=== PATIENT | male | born 1940 | race African-American/Black ===

== ENCOUNTER 2018-09-21 22:32 | Inpatient (IN) | payer MEDICARE ==
[~2018-09-21] VITALS: Ht 180.3 cm; Wt 92.5 kg
[2018-09-21] MEDS ORDERED: ASPIRIN 81MG TABLET PO ONE (23:15)
[2018-09-21 23:54] LABS: BASOPHILS % 0.6 % (0.0-2.0); EOSINOPHILS % 0.8 % (0.0-5.0); LYMPHOCYTES % 9.9 % (20.0-50.0); MEAN CORPUSCULAR HEMOGLOBIN 27.4 pg (28.0-32.0); MEAN CORPUSCULAR VOLUME 87.5 fL (80.0-94.0); MEAN PLATELET VOLUME 7.7 fl (7.4-10.4); MONOCYTES % 10.4 % (2.0-8.0); NEUTROPHILS % 78.3 % (40.0-76.0); PLATELET 227 x1000/uL (130-400); RED BLOOD CELL COUNT 3.65 mill/uL (4.7-6.1); RED CELL DISTRIBUTION WIDTH 16.6 % (11.6-14.6)
[2018-09-22] VITALS (8 sets, daily range): BP systolic 109–183; BP diastolic 44–91
[2018-09-22 00:09] LABS: CHLORIDE 107 mEq/L (98-107)
[2018-09-22] MEDS ORDERED: SODIUM CHLORIDE 0.9% 1,000 ML IV ONE (00:45)
[2018-09-22 00:48] LABS: PROTHROMBIN TIME 10.5 sec (9.1-11.1)
[2018-09-22] MEDS ORDERED: ONDANSETRON HCL 4MG/2ML INJ IV PRN (01:15)
[2018-09-22] MEDS ORDERED: DIPHENHYDRAMINE 50MG/ML VIAL IV PRN (01:15)
[2018-09-22] MEDS ORDERED: IPRATROPIUM/ALBUTEROL 0.5-3(2.5)MG/3ML NEB INH PRN (01:15)
[2018-09-22] MEDS ORDERED: MAGNESIUM/ALUMINUM HYDROXIDE/SIMETHICONE 30ML UDC PO PRN (01:15)
[2018-09-22] MEDS ORDERED: ENOXAPARIN 100MG/ML SYR SUBCUT NR (01:30)
[2018-09-22] MEDS ORDERED: CLOP75TA16 MT (03:14)
[2018-09-22] MEDS ORDERED: TAMS0.4C31 MT (03:14)
[2018-09-22] MEDS ORDERED: INSU100I22 SQ (03:14)
[2018-09-22] MEDS ORDERED: CLOP75TA33 MT (03:14)
[2018-09-22] MEDS ORDERED: BENA40TA9 MT (03:14)
[2018-09-22] MEDS ORDERED: TRAM50TA3 MT (03:14)
[2018-09-22] MEDS ORDERED: ASPI-1159 MT (03:14)
[2018-09-22] MEDS: IPRATROPIUM/ALBUTEROL 0.5-3(2.5)MG/3ML NEB HHN SCH (04:00)
[2018-09-22] MEDS ORDERED: DEXTROSE 50% WATER 50ML SYRINGE IV PRN (04:15)
[2018-09-22] MEDS: SODIUM CHLORIDE 0.9% INJ 3ML FLUSH IVF SCH ×3 (05:47→22:09)
[2018-09-22] MEDS: BLOOD SUGAR DIAGNOSTIC STRIP TEST SCH ×4 (06:44→21:00)
[2018-09-22] MEDS ORDERED: PNEUMOCOCCAL 23-VAL P-SAC VAC 0.5 ML IM ONE (08:00)
[2018-09-22] MEDS: TAMSULOSIN HCL 0.4MG SR CAPSULE PO SCH (08:48)
[2018-09-22] MEDS: CLOPIDOGREL 75MG TABLET PO SCH (08:48)
[2018-09-22] MEDS: ASPIRIN 81MG EC TABLET PO SCH (08:48)
[2018-09-22] MEDS: INSULIN LISPRO 100 UNITS/ML SUBCUT SCH ×4 (09:01→22:11)
[2018-09-22] MEDS ORDERED: INFLUENZA VIRUS VACCINE(AFLURIA) 0.5ML SYR IM ONE (10:00)
[2018-09-22] MEDS ORDERED: NA PHOS,M-B/NA PHOS,DI-BA ENEMA 118ML PR NR (13:00)
[2018-09-22] MEDS ORDERED: HEPARIN 25,000 UNITS PREMIX 500 ML IV SCH (15:30)
[2018-09-22] MEDS ORDERED: IPRATROPIUM/ALBUTEROL 0.5-3(2.5)MG/3ML NEB HHN PRN (15:30)
[2018-09-22 16:30] LABS: BG BASE EXCESS -2.8 mmol/L (-2.0-2.0); BG CARBOXYHEMOGLOBIN 0.6 % (0.5-1.5); BG DEOXYHEMOGLOBIN 6.2 % (0.0-5.0); BG FRACTION INSPIRED OXYGEN 32; BG HCO3 ACT 21.5 mmol/L (22.0-26.0); BG OXYGEN SATURATION 93.8 % (92.0-98.5); BG OXYHEMOGLOBIN 93.2 % (94.0-97.0); BG PCO2 35.2 mmHg (35.0-45.0); BG PH 7.403 (7.350-7.450); BG PO2 72.7 mmHg (75.0-100.0); BG SAMPLE SITE LEFT BRACHIAL; BG TOTAL HEMOGLOBIN 9.7 g/dL (12.0-18.0); BG VENT MODE NASAL CANNULA
[2018-09-22] MEDS ORDERED: HEPARIN BOLUS PRN aPTT <36 IV (16:45)
[2018-09-22] MEDS ORDERED: HEPARIN BOLUS PRN aPTT 37-44 IV (16:45)
[2018-09-22] MEDS: METHYLPREDNISOLONE SOD SUCC 40 MG/ML VIAL IV SCH (16:56)
[2018-09-22] MEDS ORDERED: HEPARIN 80 UNITS/KG BOLUS IV NR (17:00)
[2018-09-22] MEDS: HEPARIN 25,000 UNITS PREMIX 500 ML IV SCH (18:39)
[2018-09-22 21:03] LABS: CLARITY URINE CLEAR (CLEAR); COLOR URINE YELLOW (YELLOW); KETONES URINE NEGATIVE (NEGATIVE); LEUKOCYTE ESTERASE URINE NEGATIVE (NEGATIVE); NITRITE URINE POSITIVE (NEGATIVE); OCCULT BLOOD URINE NEGATIVE (NEGATIVE); PROTEIN URINE NEGATIVE (NEGATIVE); SPECIFIC GRAVITY URINE 1.016 (1.005-1.030); UROBILINOGEN URINE 0.2 E.U./dL (0.2-1.0)
[2018-09-22 21:22] LABS: *AMPHETAMINES SCREEN URINE NEGATIVE (NEGATIVE); *BARBITURATES SCREEN URINE NEGATIVE (NEGATIVE)
[2018-09-22 21:23] LABS: *BENZODIAZEPINES SCREEN URINE NEGATIVE (NEGATIVE); *COCAINE SCREEN URINE NEGATIVE (NEGATIVE); CANNABINOID URINE SCREEN NEGATIVE (NEGATIVE); METHADONE URINE SCREEN NEGATIVE (NEGATIVE); OPIATES URINE SCREEN NEGATIVE (NEGATIVE)
[2018-09-22 21:24] LABS: PHENCYCLIDINE URINE SCREEN NEGATIVE (NEGATIVE)
[2018-09-22] MEDS ORDERED: INSULIN GLARGINE UD 100 UNITS/ML SYR SUBCUT SCH (22:00)
[2018-09-22] MEDS: INSULIN GLARGINE UD 100 UNITS/ML SYR SUBCUT SCH (22:11)
[2018-09-22] MEDS: ACETAMINOPHEN 325MG TABLET PO PRN (22:12)
[2018-09-22] MEDS ORDERED: ENOXAPARIN 100MG/ML SYR SUBCUT SCH (23:00)
[2018-09-23] VITALS (12 sets, daily range): BP systolic 129–166; BP diastolic 48–98
[2018-09-23] MEDS: METHYLPREDNISOLONE SOD SUCC 40 MG/ML VIAL IV SCH ×3 (00:17→16:35)
[2018-09-23] MEDS: SODIUM CHLORIDE 0.9% INJ 3ML FLUSH IVF SCH ×3 (06:22→23:07)
[2018-09-23] MEDS: BLOOD SUGAR DIAGNOSTIC STRIP TEST SCH ×4 (06:23→21:00)
[2018-09-23] MEDS: INSULIN LISPRO 100 UNITS/ML SUBCUT SCH ×4 (08:23→23:08)
[2018-09-23] MEDS: TAMSULOSIN HCL 0.4MG SR CAPSULE PO SCH (08:24)
[2018-09-23] MEDS: ASPIRIN 81MG EC TABLET PO SCH (08:24)
[2018-09-23] MEDS: CLOPIDOGREL 75MG TABLET PO SCH (08:24)
[2018-09-23] MEDS: HEPARIN 25,000 UNITS PREMIX 500 ML IV SCH (14:31)
[2018-09-23] MEDS: CLONIDINE 0.1MG TABLET PO PRN (16:35)
[2018-09-23] MEDS: IPRATROPIUM/ALBUTEROL 0.5-3(2.5)MG/3ML NEB HHN SCH (17:06)
[2018-09-23] MEDS: INSULIN GLARGINE UD 100 UNITS/ML SYR SUBCUT SCH (22:00)
[2018-09-24] VITALS (14 sets, daily range): BP systolic 115–174; BP diastolic 50–108
[2018-09-24] MEDS: SODIUM CHLORIDE 0.9% INJ 3ML FLUSH IVF SCH ×3 (06:54→21:53)
[2018-09-24] MEDS: BLOOD SUGAR DIAGNOSTIC STRIP TEST SCH ×4 (06:54→20:46)
[2018-09-24] MEDS: INSULIN LISPRO 100 UNITS/ML SUBCUT SCH ×4 (06:54→20:45)
[2018-09-24] MEDS: METHYLPREDNISOLONE SOD SUCC 40 MG/ML VIAL IV SCH ×2 (09:20→17:13)
[2018-09-24] MEDS: ASPIRIN 81MG EC TABLET PO SCH (09:21)
[2018-09-24] MEDS: TAMSULOSIN HCL 0.4MG SR CAPSULE PO SCH (09:21)
[2018-09-24] MEDS: CLOPIDOGREL 75MG TABLET PO SCH (09:21)
[2018-09-24] MEDS: ACETAMINOPHEN 325MG TABLET PO PRN (09:50)
[2018-09-24] MEDS: ENOXAPARIN 100MG/ML SYR SUBCUT SCH (15:58)
[2018-09-24] MEDS: CLONIDINE 0.1MG TABLET PO PRN (17:13)
[2018-09-24] MEDS: GUAIFENESIN 200MG/10ML SUGAR FREE UDC PO PRN (21:22)
[2018-09-24] MEDS: INSULIN GLARGINE UD 100 UNITS/ML SYR SUBCUT SCH (21:55)
[2018-09-25] VITALS (13 sets, daily range): BP systolic 118–168; BP diastolic 50–93
[2018-09-25] MEDS: IPRATROPIUM/ALBUTEROL 0.5-3(2.5)MG/3ML NEB HHN SCH ×4 (01:36→23:38)
[2018-09-25] MEDS: SODIUM CHLORIDE 0.9% INJ 3ML FLUSH IVF SCH ×3 (05:52→21:33)
[2018-09-25] MEDS: BLOOD SUGAR DIAGNOSTIC STRIP TEST SCH ×4 (06:11→21:32)
[2018-09-25] MEDS: INSULIN LISPRO 100 UNITS/ML SUBCUT SCH ×4 (08:42→21:46)
[2018-09-25] MEDS: TAMSULOSIN HCL 0.4MG SR CAPSULE PO SCH (08:45)
[2018-09-25] MEDS: ASPIRIN 81MG EC TABLET PO SCH (08:45)
[2018-09-25] MEDS: METHYLPREDNISOLONE SOD SUCC 40 MG/ML VIAL IV SCH (08:45)
[2018-09-25] MEDS: CLOPIDOGREL 75MG TABLET PO SCH (08:46)
[2018-09-25] MEDS: GUAIFENESIN 200MG/10ML SUGAR FREE UDC PO PRN ×3 (08:52→17:24)
[2018-09-25] MEDS: ENOXAPARIN 100MG/ML SYR SUBCUT SCH (15:45)
[2018-09-25] MEDS: INSULIN GLARGINE UD 100 UNITS/ML SYR SUBCUT SCH (21:32)
[2018-09-26] VITALS (12 sets, daily range): BP systolic 114–159; BP diastolic 50–84
[2018-09-26] MEDS: IPRATROPIUM/ALBUTEROL 0.5-3(2.5)MG/3ML NEB HHN SCH ×5 (04:45→20:54)
[2018-09-26] MEDS: SODIUM CHLORIDE 0.9% INJ 3ML FLUSH IVF SCH ×3 (06:28→21:20)
[2018-09-26] MEDS: BLOOD SUGAR DIAGNOSTIC STRIP TEST SCH ×4 (06:28→20:44)
[2018-09-26] MEDS: INSULIN LISPRO 100 UNITS/ML SUBCUT SCH ×4 (06:29→20:52)
[2018-09-26 07:12] LABS: BASOPHILS % 0.6 % (0.0-2.0); HEMATOCRIT. 29.9 % (42.0-52.0); HEMOGLOBIN. 9.7 g/dL (14.0-18.0); LYMPHOCYTES % 25.4 % (20.0-50.0); MEAN CORPUSCULAR HEMOGLOBIN 27.6 pg (28.0-32.0); MEAN CORPUSCULAR VOLUME 85.1 fL (80.0-94.0); MEAN PLATELET VOLUME 8.2 fl (7.4-10.4); MONOCYTES % 13.8 % (2.0-8.0); NEUTROPHILS % 59.2 % (40.0-76.0); PLATELET 323 x1000/uL (130-400); RED BLOOD CELL COUNT 3.52 mill/uL (4.7-6.1); RED CELL DISTRIBUTION WIDTH 16.3 % (11.6-14.6)
[2018-09-26] MEDS: PREDNISONE 20MG TABLET PO SCH (08:16)
[2018-09-26] MEDS: TAMSULOSIN HCL 0.4MG SR CAPSULE PO SCH (08:17)
[2018-09-26] MEDS: CLOPIDOGREL 75MG TABLET PO SCH (08:17)
[2018-09-26] MEDS: ASPIRIN 81MG EC TABLET PO SCH (08:17)
[2018-09-26] MEDS: GUAIFENESIN 200MG/10ML SUGAR FREE UDC PO PRN (08:40)
[2018-09-26] MEDS: ENOXAPARIN 100MG/ML SYR SUBCUT SCH (14:28)
[2018-09-26] MEDS ORDERED: THROAT LOZENGES-BENZOCAINE/MENTH/CETYLPYRD CL LOZENGES MM PRN (15:00)
[2018-09-26] MEDS: INSULIN GLARGINE UD 100 UNITS/ML SYR SUBCUT SCH (21:13)
[2018-09-27] VITALS (8 sets, daily range): BP systolic 122–150; BP diastolic 56–91
[2018-09-27] MEDS: IPRATROPIUM/ALBUTEROL 0.5-3(2.5)MG/3ML NEB HHN SCH ×4 (00:26→12:00)
[2018-09-27] MEDS: SODIUM CHLORIDE 0.9% INJ 3ML FLUSH IVF SCH ×2 (06:00→13:04)
[2018-09-27] MEDS: BLOOD SUGAR DIAGNOSTIC STRIP TEST SCH ×2 (06:50→11:50)
[2018-09-27] MEDS: CLOPIDOGREL 75MG TABLET PO SCH (08:11)
[2018-09-27] MEDS: PREDNISONE 20MG TABLET PO SCH (08:12)
[2018-09-27] MEDS: INSULIN LISPRO 100 UNITS/ML SUBCUT SCH ×2 (08:12→13:03)
[2018-09-27] MEDS: ASPIRIN 81MG EC TABLET PO SCH (08:12)
[2018-09-27] MEDS: TAMSULOSIN HCL 0.4MG SR CAPSULE PO SCH (08:12)
[2018-09-27] MEDS ORDERED: ENOXAPARIN 80MG/0.8ML SYR SUBCUT SCH (09:00)
[2018-09-27] MEDS ORDERED: RIVAROXABAN 15 MG TABLET PO SCH (17:00)
== END 2018-09-27 15:50 | DRG 175 ==
LOC: ER 22:32 → 6WST 09-22 00:38 → EDBEDREQ 09-22 00:42 → EDBEDREQDT 09-22 00:42 → EDBEDREQTM 09-22 00:42 → ENRESERV 09-22 01:12 → 3WST 09-22 15:42 → 7WST 09-24 09:28 → 3WST 09-24 09:38
PROVIDERS: ADMIT Internal Medicine; ATTEND Internal Medicine
DX: I26.99 Other pulmonary embolism without acute cor pulmonale (principal); J96.01 Acute respiratory failure with hypoxia; D68.59 Other primary thrombophilia; N17.9 Acute kidney failure, unspecified; R07.89 Other chest pain; E11.51 Type 2 diabetes mellitus with diabetic peripheral angiopathy without gangrene; I25.10 Atherosclerotic heart disease of native coronary artery without angina pectoris; E11.42 Type 2 diabetes mellitus with diabetic polyneuropathy; D64.9 Anemia, unspecified; E11.22 Type 2 diabetes mellitus with diabetic chronic kidney disease; F17.200 Nicotine dependence, unspecified, uncomplicated; G89.29 Other chronic pain; M19.90 Unspecified osteoarthritis, unspecified site; R26.9 Unspecified abnormalities of gait and mobility; I12.9 Hypertensive chronic kidney disease with stage 1 through stage 4 chronic kidney disease, or unspecified chronic kidney disease; N18.9 Chronic kidney disease, unspecified; Z79.4 Long term (current) use of insulin; Z95.5 Presence of coronary angioplasty implant and graft; Z95.820 Peripheral vascular angioplasty status with implants and grafts; Z79.899 Other long term (current) drug therapy; Z79.82 Long term (current) use of aspirin; Z83.3 Family history of diabetes mellitus
CPT/HCPCS: 36415; 36600; 71045; 78582; 80048; 80305; 82375; 82805; 82962; 83880; 84484; 85379; 90686; 93005; 93306; 93970; 94640; 97116; 97162; 97166; 97530; 97535; 99285; A9558; J1200; J1644; J1650; J1815; J2405; J2920; J7512; J7620

== ENCOUNTER 2018-09-27 15:58 | Inpatient (IN) | payer MEDICARE ==
[~2018-09-27] VITALS: Ht 188 cm; Wt 89.4 kg
[~2018-09-27 15:58] MED LIST: ASPI-1159 MT; BENA40TA9 MT; CLOP75TA16 MT; CLOP75TA33 MT; INSU100I22 SQ; TAMS0.4C31 MT; TRAM50TA3 MT
[2018-09-27] MEDS ORDERED: MAGNESIUM/ALUMINUM HYDROXIDE/SIMETHICONE 30ML UDC PO PRN (16:45)
[2018-09-27] MEDS ORDERED: ACETAMINOPHEN 650MG/20.3ML UDC PO PRN (16:45)
[2018-09-27] MEDS ORDERED: GUAIFENESIN 200MG/10ML SUGAR FREE UDC PO PRN (16:45)
[2018-09-27] MEDS ORDERED: DEXTROSE 50% WATER 50ML SYRINGE IV PRN (16:45)
[2018-09-27] MEDS ORDERED: IPRATROPIUM/ALBUTEROL 0.5-3(2.5)MG/3ML NEB HHN PRN (16:45)
[2018-09-27] MEDS ORDERED: DIPHENHYDRAMINE 25MG CAPSULE PO PRN (16:45)
[2018-09-27] MEDS ORDERED: CLONIDINE 0.1MG TABLET PO PRN (16:45)
[2018-09-27] MEDS: BLOOD SUGAR DIAGNOSTIC STRIP TEST SCH ×2 (17:00→21:29)
[2018-09-27 18:00] VITALS: BP 132/69
[2018-09-27] MEDS: IPRATROPIUM/ALBUTEROL 0.5-3(2.5)MG/3ML NEB HHN SCH ×3 (18:03→23:51)
[2018-09-27] MEDS: RIVAROXABAN 15 MG TABLET PO SCH (19:03)
[2018-09-27] MEDS: INSULIN LISPRO 100 UNITS/ML SUBCUT SCH ×2 (19:03→21:57)
[2018-09-27 20:00] VITALS: BP 119/66
[2018-09-27] MEDS: INSULIN GLARGINE UD 100 UNITS/ML SYR SUBCUT SCH (21:58)
[2018-09-27 23:19] LABS: CLARITY URINE CLOUDY (CLEAR); COLOR URINE YELLOW (YELLOW); KETONES URINE NEGATIVE (NEGATIVE); LEUKOCYTE ESTERASE URINE 3+ (NEGATIVE); NITRITE URINE POSITIVE (NEGATIVE); OCCULT BLOOD URINE NEGATIVE (NEGATIVE); PH URINE 5.5 (4.5-8.0); PROTEIN URINE NEGATIVE (NEGATIVE); SPECIFIC GRAVITY URINE 1.007 (1.005-1.030)
[2018-09-28] MEDS: IPRATROPIUM/ALBUTEROL 0.5-3(2.5)MG/3ML NEB HHN SCH ×4 (04:55→20:05)
[2018-09-28] MEDS: INSULIN LISPRO 100 UNITS/ML SUBCUT SCH ×4 (06:17→21:14)
[2018-09-28] MEDS: BLOOD SUGAR DIAGNOSTIC STRIP TEST SCH ×4 (06:17→21:16)
[2018-09-28 06:58] LABS: BASOPHILS % 0.9 % (0.0-2.0); EOSINOPHILS % 3.1 % (0.0-5.0); HEMATOCRIT. 28.6 % (42.0-52.0); HEMOGLOBIN. 9.2 g/dL (14.0-18.0); LYMPHOCYTES % 27.7 % (20.0-50.0); MEAN CORPUSCULAR HEMOGLOBIN 27.5 pg (28.0-32.0); MEAN CORPUSCULAR VOLUME 85.2 fL (80.0-94.0); MONOCYTES % 14.4 % (2.0-8.0); NEUTROPHILS % 53.9 % (40.0-76.0); PLATELET 352 x1000/uL (130-400); RED BLOOD CELL COUNT 3.36 mill/uL (4.7-6.1); RED CELL DISTRIBUTION WIDTH 17.2 % (11.6-14.6)
[2018-09-28 07:02] LABS: CHLORIDE 105 mEq/L (98-107)
[2018-09-28] MEDS: TAMSULOSIN HCL 0.4MG SR CAPSULE PO SCH (08:09)
[2018-09-28] MEDS: CLOPIDOGREL 75MG TABLET PO SCH (08:09)
[2018-09-28] MEDS: RIVAROXABAN 15 MG TABLET PO SCH ×2 (08:09→17:58)
[2018-09-28] MEDS: SODIUM CHLORIDE 0.9% INJ 3ML FLUSH IVF SCH ×2 (08:10→08:13)
[2018-09-28] MEDS: ASPIRIN 81MG TABLET PO SCH (08:10)
[2018-09-28 08:28] VITALS: BP 159/62
[2018-09-28] MEDS: LEVOFLOXACIN 250MG TABLET PO SCH (17:58)
[2018-09-28] MEDS: BISACODYL 5MG TABLET PO PRN (18:26)
[2018-09-28 19:23] LABS: *AMPHETAMINES SCREEN URINE NEGATIVE (NEGATIVE); *BARBITURATES SCREEN URINE NEGATIVE (NEGATIVE); *BENZODIAZEPINES SCREEN URINE NEGATIVE (NEGATIVE); *COCAINE SCREEN URINE NEGATIVE (NEGATIVE); CANNABINOID URINE SCREEN NEGATIVE (NEGATIVE); METHADONE URINE SCREEN NEGATIVE (NEGATIVE); OPIATES URINE SCREEN NEGATIVE (NEGATIVE); PHENCYCLIDINE URINE SCREEN NEGATIVE (NEGATIVE)
[2018-09-28 19:34] LABS: ETHANOL BLOOD < 10 mg/dL
[2018-09-28 19:40] LABS: T4 FREE 1.14 ng/dL (0.76-1.46)
[2018-09-28 20:00] VITALS: BP 147/55
[2018-09-28] MEDS: INSULIN GLARGINE UD 100 UNITS/ML SYR SUBCUT SCH (21:15)
[2018-09-29] MEDS: IPRATROPIUM/ALBUTEROL 0.5-3(2.5)MG/3ML NEB HHN SCH ×6 (02:00→21:12)
[2018-09-29] MEDS: BLOOD SUGAR DIAGNOSTIC STRIP TEST SCH ×4 (06:23→21:15)
[2018-09-29] MEDS: INSULIN LISPRO 100 UNITS/ML SUBCUT SCH ×4 (06:26→21:14)
[2018-09-29 07:19] LABS: HEMATOCRIT. 30.2 % (42.0-52.0); HEMOGLOBIN. 9.6 g/dL (14.0-18.0); MEAN CORPUSCULAR VOLUME 84.9 fL (80.0-94.0); MEAN PLATELET VOLUME 7.9 fl (7.4-10.4); PLATELET 376 x1000/uL (130-400); RED BLOOD CELL COUNT 3.56 mill/uL (4.7-6.1); RED CELL DISTRIBUTION WIDTH 17.7 % (11.6-14.6)
[2018-09-29 07:40] LABS: PROSTRATE SPECIFIC AG TOTAL 23.35 ng/mL (0.0-4.0)
[2018-09-29 07:50] LABS: PHOSPHORUS 3.8 mg/dL (2.5-4.9)
[2018-09-29 08:26] VITALS: BP 157/65
[2018-09-29] MEDS: CLOPIDOGREL 75MG TABLET PO SCH (08:48)
[2018-09-29] MEDS: TAMSULOSIN HCL 0.4MG SR CAPSULE PO SCH (08:48)
[2018-09-29] MEDS: RIVAROXABAN 15 MG TABLET PO SCH ×2 (08:48→17:11)
[2018-09-29] MEDS: ASPIRIN 81MG TABLET PO SCH (08:48)
[2018-09-29] MEDS: LEVOFLOXACIN 250MG TABLET PO SCH (10:48)
[2018-09-29] MEDS ORDERED: BISACODYL 10MG SUPP PR PRN (14:30)
[2018-09-29] MEDS ORDERED: NA PHOS,M-B/NA PHOS,DI-BA ENEMA 118ML PR NR (14:30)
[2018-09-29] MEDS: LACTULOSE 20G/30ML UDC PO SCH ×2 (15:03→17:10)
[2018-09-29 15:15] LABS: PLATELET ESTIMATE NORMAL
[2018-09-29] MEDS: DOCUSATE SODIUM 100MG CAPSULE PO SCH (17:11)
[2018-09-29] MEDS ORDERED: NA PHOS,M-B/NA PHOS,DI-BA ENEMA 118ML PR PRN (19:00)
[2018-09-29 20:00] VITALS: BP 147/63
[2018-09-29] MEDS: IRON SUCROSE COMPLEX 100 MG in SODIUM CHLORIDE 0.9% 100 ML IV SCH (20:39)
[2018-09-29] MEDS: POLYETHYLENE GLYCOL 3350 (17GM) 1 DOSE PACK PO SCH (20:39)
[2018-09-29] MEDS: INSULIN GLARGINE UD 100 UNITS/ML SYR SUBCUT SCH (21:15)
[2018-09-30] MEDS: IPRATROPIUM/ALBUTEROL 0.5-3(2.5)MG/3ML NEB HHN SCH ×5 (01:00→20:46)
[2018-09-30] MEDS: INSULIN LISPRO 100 UNITS/ML SUBCUT SCH ×4 (06:14→20:40)
[2018-09-30] MEDS: BLOOD SUGAR DIAGNOSTIC STRIP TEST SCH ×4 (06:14→20:40)
[2018-09-30 08:00] VITALS: BP 138/53
[2018-09-30] MEDS: CLOPIDOGREL 75MG TABLET PO SCH (10:08)
[2018-09-30] MEDS: DOCUSATE SODIUM 100MG CAPSULE PO SCH ×2 (10:08→17:38)
[2018-09-30] MEDS: RIVAROXABAN 15 MG TABLET PO SCH ×2 (10:08→17:38)
[2018-09-30] MEDS: TAMSULOSIN HCL 0.4MG SR CAPSULE PO SCH (10:08)
[2018-09-30] MEDS: ASPIRIN 81MG TABLET PO SCH (10:08)
[2018-09-30] MEDS: LEVOFLOXACIN 250MG TABLET PO SCH (10:09)
[2018-09-30] MEDS: CEFTRIAXONE 1 G PREMIX 50 ML IV SCH (17:37)
[2018-09-30 20:00] VITALS: BP 169/71
[2018-09-30] MEDS: IRON SUCROSE COMPLEX 100 MG in SODIUM CHLORIDE 0.9% 100 ML IV SCH (20:38)
[2018-09-30] MEDS: POLYETHYLENE GLYCOL 3350 (17GM) 1 DOSE PACK PO SCH (20:38)
[2018-09-30] MEDS: INSULIN GLARGINE UD 100 UNITS/ML SYR SUBCUT SCH (21:53)
[2018-10-01] MEDS: IPRATROPIUM/ALBUTEROL 0.5-3(2.5)MG/3ML NEB HHN SCH ×6 (00:34→21:42)
[2018-10-01] MEDS: BLOOD SUGAR DIAGNOSTIC STRIP TEST SCH ×4 (06:35→21:16)
[2018-10-01 08:00] VITALS: BP 141/63
[2018-10-01] MEDS: ASPIRIN 81MG TABLET PO SCH (08:37)
[2018-10-01] MEDS: TAMSULOSIN HCL 0.4MG SR CAPSULE PO SCH (08:37)
[2018-10-01] MEDS: DOCUSATE SODIUM 100MG CAPSULE PO SCH ×2 (08:37→17:33)
[2018-10-01] MEDS: RIVAROXABAN 15 MG TABLET PO SCH ×2 (08:37→17:33)
[2018-10-01] MEDS: CLOPIDOGREL 75MG TABLET PO SCH (08:39)
[2018-10-01 08:40] LABS: BASOPHILS % 1.8 % (0.0-2.0); EOSINOPHILS % 2.2 % (0.0-5.0); HEMATOCRIT. 30.4 % (42.0-52.0); HEMOGLOBIN. 9.5 g/dL (14.0-18.0); LYMPHOCYTES % 27.6 % (20.0-50.0); MEAN CORPUSCULAR HEMOGLOBIN 26.6 pg (28.0-32.0); MEAN CORPUSCULAR VOLUME 85.3 fL (80.0-94.0); MEAN PLATELET VOLUME 7.6 fl (7.4-10.4); MONOCYTES % 14.5 % (2.0-8.0); NEUTROPHILS % 53.9 % (40.0-76.0); PLATELET 398 x1000/uL (130-400); RED BLOOD CELL COUNT 3.57 mill/uL (4.7-6.1); RED CELL DISTRIBUTION WIDTH 17.9 % (11.6-14.6)
[2018-10-01] MEDS: THROAT LOZENGES-BENZOCAINE/MENTH/CETYLPYRD CL LOZENGES MM PRN ×2 (08:42→20:40)
[2018-10-01 09:13] LABS: PHOSPHORUS 3.7 mg/dL (2.5-4.9)
[2018-10-01] MEDS: INSULIN LISPRO 100 UNITS/ML SUBCUT SCH ×4 (09:46→21:33)
[2018-10-01] MEDS: CEFTRIAXONE 1 G PREMIX 50 ML IV SCH (15:51)
[2018-10-01 20:00] VITALS: BP 158/62
[2018-10-01] MEDS: IRON SUCROSE COMPLEX 100 MG in SODIUM CHLORIDE 0.9% 100 ML IV SCH (20:40)
[2018-10-01] MEDS: POLYETHYLENE GLYCOL 3350 (17GM) 1 DOSE PACK PO SCH (20:40)
[2018-10-01] MEDS: INSULIN GLARGINE UD 100 UNITS/ML SYR SUBCUT SCH (21:33)
[2018-10-02] MEDS: IPRATROPIUM/ALBUTEROL 0.5-3(2.5)MG/3ML NEB HHN SCH ×6 (01:02→19:40)
[2018-10-02] MEDS: BLOOD SUGAR DIAGNOSTIC STRIP TEST SCH ×4 (06:16→20:36)
[2018-10-02] MEDS: INSULIN LISPRO 100 UNITS/ML SUBCUT SCH ×4 (06:16→20:38)
[2018-10-02 07:11] LABS: BASOPHILS % 1.1 % (0.0-2.0); EOSINOPHILS % 1.8 % (0.0-5.0); HEMATOCRIT. 30.5 % (42.0-52.0); HEMOGLOBIN. 9.6 g/dL (14.0-18.0); LYMPHOCYTES % 29.6 % (20.0-50.0); MEAN CORPUSCULAR HEMOGLOBIN 26.8 pg (28.0-32.0); MEAN CORPUSCULAR VOLUME 85.2 fL (80.0-94.0); MONOCYTES % 12.5 % (2.0-8.0); PLATELET 413 x1000/uL (130-400); RED BLOOD CELL COUNT 3.58 mill/uL (4.7-6.1); RED CELL DISTRIBUTION WIDTH 18.6 % (11.6-14.6)
[2018-10-02 08:00] VITALS: BP 155/59
[2018-10-02] MEDS: TAMSULOSIN HCL 0.4MG SR CAPSULE PO SCH (09:19)
[2018-10-02] MEDS: DOCUSATE SODIUM 100MG CAPSULE PO SCH (09:19)
[2018-10-02] MEDS: CLOPIDOGREL 75MG TABLET PO SCH (09:19)
[2018-10-02] MEDS: ASPIRIN 81MG TABLET PO SCH (09:19)
[2018-10-02] MEDS: RIVAROXABAN 15 MG TABLET PO SCH ×2 (09:19→16:53)
[2018-10-02 10:10] LABS: PHOSPHORUS 3.4 mg/dL (2.5-4.9)
[2018-10-02] MEDS: CEFTRIAXONE 1 G PREMIX 50 ML IV SCH (15:11)
[2018-10-02] MEDS ORDERED: BISACODYL 10MG SUPP PR PRN (16:00)
[2018-10-02] MEDS: DOCUSATE SODIUM 250MG CAPSULE PO SCH (16:53)
[2018-10-02] MEDS: LOSARTAN POTASSIUM 25 MG TABLET PO SCH (18:13)
[2018-10-02 20:00] VITALS: BP 150/59
[2018-10-02] MEDS: IRON SUCROSE COMPLEX 100 MG in SODIUM CHLORIDE 0.9% 100 ML IV SCH (20:48)
[2018-10-02] MEDS: INSULIN GLARGINE UD 100 UNITS/ML SYR SUBCUT SCH (22:04)
[2018-10-02] MEDS: POLYETHYLENE GLYCOL 3350 (17GM) 1 DOSE PACK PO SCH (22:05)
[2018-10-03] MEDS: IPRATROPIUM/ALBUTEROL 0.5-3(2.5)MG/3ML NEB HHN SCH ×4 (04:10→21:54)
[2018-10-03] MEDS: BLOOD SUGAR DIAGNOSTIC STRIP TEST SCH ×4 (06:20→21:53)
[2018-10-03] MEDS: INSULIN LISPRO 100 UNITS/ML SUBCUT SCH ×4 (06:23→21:54)
[2018-10-03] MEDS: BISACODYL 5MG TABLET PO PRN (06:25)
[2018-10-03 08:11] VITALS: BP 116/58
[2018-10-03] MEDS: DOCUSATE SODIUM 250MG CAPSULE PO SCH ×2 (08:35→16:37)
[2018-10-03] MEDS: LOSARTAN POTASSIUM 25 MG TABLET PO SCH (08:35)
[2018-10-03] MEDS: ASPIRIN 81MG TABLET PO SCH (08:35)
[2018-10-03] MEDS: TAMSULOSIN HCL 0.4MG SR CAPSULE PO SCH (08:35)
[2018-10-03] MEDS: RIVAROXABAN 15 MG TABLET PO SCH ×2 (08:35→16:37)
[2018-10-03] MEDS: CLOPIDOGREL 75MG TABLET PO SCH (08:35)
[2018-10-03] MEDS ORDERED: DOCUSATE SODIUM 250MG CAPSULE PO SCH (09:45)
[2018-10-03] MEDS: CEFTRIAXONE 1 G PREMIX 50 ML IV SCH (15:11)
[2018-10-03 19:09] LABS: 25-HYDROXY VITAMIN D3 29 ng/mL (.)
[2018-10-03 20:00] VITALS: BP 116/52
[2018-10-03] MEDS: POLYETHYLENE GLYCOL 3350 (17GM) 1 DOSE PACK PO SCH (21:25)
[2018-10-03] MEDS: IRON SUCROSE COMPLEX 100 MG in SODIUM CHLORIDE 0.9% 100 ML IV SCH (21:26)
[2018-10-03] MEDS: INSULIN GLARGINE UD 100 UNITS/ML SYR SUBCUT SCH (21:55)
[2018-10-04] MEDS: IPRATROPIUM/ALBUTEROL 0.5-3(2.5)MG/3ML NEB HHN SCH ×4 (01:27→17:50)
[2018-10-04 06:45] LABS: HEMATOCRIT. 26.8 % (42.0-52.0); HEMOGLOBIN. 8.3 g/dL (14.0-18.0); MEAN CORPUSCULAR HEMOGLOBIN 26.3 pg (28.0-32.0); PLATELET 387 x1000/uL (130-400); RED BLOOD CELL COUNT 3.15 mill/uL (4.7-6.1); RED CELL DISTRIBUTION WIDTH 19.1 % (11.6-14.6)
[2018-10-04 07:08] LABS: PHOSPHORUS 3.4 mg/dL (2.5-4.9)
[2018-10-04] MEDS: INSULIN LISPRO 100 UNITS/ML SUBCUT SCH ×4 (07:18→21:27)
[2018-10-04] MEDS: BLOOD SUGAR DIAGNOSTIC STRIP TEST SCH ×4 (07:18→21:02)
[2018-10-04 08:00] VITALS: BP 141/58
[2018-10-04 09:35] LABS: PLATELET ESTIMATE NORMAL
[2018-10-04] MEDS: CLOPIDOGREL 75MG TABLET PO SCH (10:15)
[2018-10-04] MEDS: DOCUSATE SODIUM 250MG CAPSULE PO SCH ×2 (10:15→17:27)
[2018-10-04] MEDS: TAMSULOSIN HCL 0.4MG SR CAPSULE PO SCH (10:15)
[2018-10-04] MEDS: RIVAROXABAN 15 MG TABLET PO SCH ×2 (10:16→17:27)
[2018-10-04] MEDS: LOSARTAN POTASSIUM 25 MG TABLET PO SCH (10:19)
[2018-10-04] MEDS: ASPIRIN 81MG TABLET PO SCH (10:19)
[2018-10-04] MEDS ORDERED: ERGOCALCIFEROL 50000UNITS CAPSULE PO SCH (14:00)
[2018-10-04] MEDS: CEFTRIAXONE 1 G PREMIX 50 ML IV SCH (14:27)
[2018-10-04] MEDS: ONDANSETRON 4MG ODT PO PRN (17:27)
[2018-10-04] MEDS ORDERED: NA PHOS,M-B/NA PHOS,DI-BA ENEMA 118ML PR NR (17:50)
[2018-10-04] MEDS: DEXT 5%/0.45% NACL 1000ML 1,000 ML IV SCH (18:09)
[2018-10-04 20:00] VITALS: BP 122/55
[2018-10-04] MEDS: POLYETHYLENE GLYCOL 3350 (17GM) 1 DOSE PACK PO SCH (21:00)
[2018-10-04] MEDS: INSULIN GLARGINE UD 100 UNITS/ML SYR SUBCUT SCH (21:27)
[2018-10-05] MEDS: DEXT 5%/0.45% NACL 1000ML 1,000 ML IV SCH (04:35)
[2018-10-05] MEDS: BLOOD SUGAR DIAGNOSTIC STRIP TEST SCH ×4 (06:30→20:54)
[2018-10-05] MEDS: INSULIN LISPRO 100 UNITS/ML SUBCUT SCH ×4 (07:50→21:41)
[2018-10-05] MEDS: DOCUSATE SODIUM 250MG CAPSULE PO SCH ×2 (08:14→17:22)
[2018-10-05] MEDS: ASPIRIN 81MG TABLET PO SCH (08:15)
[2018-10-05] MEDS: TAMSULOSIN HCL 0.4MG SR CAPSULE PO SCH (08:15)
[2018-10-05] MEDS: LOSARTAN POTASSIUM 25 MG TABLET PO SCH (08:15)
[2018-10-05] MEDS: RIVAROXABAN 15 MG TABLET PO SCH ×2 (08:15→17:22)
[2018-10-05] MEDS: CLOPIDOGREL 75MG TABLET PO SCH (08:15)
[2018-10-05 08:20] LABS: PHOSPHORUS 3.5 mg/dL (2.5-4.9)
[2018-10-05 08:23] VITALS: BP 131/53
[2018-10-05 11:41] LABS: HEMOGLOBIN. 7.1 g/dL (14.0-18.0); MEAN CORPUSCULAR HEMOGLOBIN 27.1 pg (28.0-32.0); MEAN CORPUSCULAR VOLUME 85.2 fL (80.0-94.0); MEAN PLATELET VOLUME 7.3 fl (7.4-10.4); PLATELET 332 x1000/uL (130-400); RED BLOOD CELL COUNT 2.63 mill/uL (4.7-6.1); RED CELL DISTRIBUTION WIDTH 18.3 % (11.6-14.6)
[2018-10-05 11:43] LABS: HEMATOCRIT. 22.4 % (42.0-52.0)
[2018-10-05] MEDS: CEFTRIAXONE 1 G PREMIX 50 ML IV SCH (14:11)
[2018-10-05 15:01] LABS: NUCLEATED RED BLOOD CELLS 2 /100 WBC; PLATELET ESTIMATE NORMAL
[2018-10-05] MEDS ORDERED: ACETAMINOPHEN 500MG TABLET PO SCH (16:45)
[2018-10-05] MEDS ORDERED: DIPHENHYDRAMINE 50MG CAPSULE PO SCH (16:45)
[2018-10-05 20:00] VITALS: BP 130/57
[2018-10-05] MEDS: POLYETHYLENE GLYCOL 3350 (17GM) 1 DOSE PACK PO SCH (20:53)
[2018-10-05] MEDS: INSULIN GLARGINE UD 100 UNITS/ML SYR SUBCUT SCH (21:41)
[2018-10-05 23:09] VITALS: BP 135/56
[2018-10-05 23:29] VITALS: BP 131/46
[2018-10-06] VITALS (8 sets, daily range): BP systolic 106–140; BP diastolic 37–60
[2018-10-06 02:28] LABS: HEMATOCRIT 23.9 % (42.0-52.0); HEMATOCRIT. 23.9 % (42.0-52.0); HEMOGLOBIN 7.6 g/dL (14.0-18.0); HEMOGLOBIN. 7.6 g/dL (14.0-18.0); MEAN CORPUSCULAR HEMOGLOBIN 27.4 pg (28.0-32.0); MEAN CORPUSCULAR VOLUME 86.2 fL (80.0-94.0); MEAN PLATELET VOLUME 7.4 fl (7.4-10.4); PLATELET 345 x1000/uL (130-400); RED BLOOD CELL COUNT 2.77 mill/uL (4.7-6.1); RED CELL DISTRIBUTION WIDTH 18.2 % (11.6-14.6)
[2018-10-06 02:35] LABS: INR 1.1
[2018-10-06 04:08] LABS: PLATELET ESTIMATE NORMAL
[2018-10-06] MEDS: BLOOD SUGAR DIAGNOSTIC STRIP TEST SCH ×4 (06:41→21:20)
[2018-10-06] MEDS: INSULIN LISPRO 100 UNITS/ML SUBCUT SCH ×4 (07:06→21:22)
[2018-10-06] MEDS: RIVAROXABAN 15 MG TABLET PO SCH ×2 (08:39→18:18)
[2018-10-06] MEDS: DOCUSATE SODIUM 250MG CAPSULE PO SCH ×2 (08:39→18:17)
[2018-10-06] MEDS: ASPIRIN 81MG TABLET PO SCH (08:39)
[2018-10-06] MEDS: TAMSULOSIN HCL 0.4MG SR CAPSULE PO SCH (08:39)
[2018-10-06] MEDS: LOSARTAN POTASSIUM 25 MG TABLET PO SCH (08:39)
[2018-10-06] MEDS ORDERED: PANTOPRAZOLE 40MG DR TABLET PO SCH (09:00)
[2018-10-06] MEDS: CEFTRIAXONE 1 G PREMIX 50 ML IV SCH (14:32)
[2018-10-06 16:47] LABS: HEMATOCRIT. 30.1 % (42.0-52.0); HEMOGLOBIN. 9.6 g/dL (14.0-18.0); MEAN CORPUSCULAR HEMOGLOBIN 28.1 pg (28.0-32.0); MEAN CORPUSCULAR VOLUME 87.9 fL (80.0-94.0); MEAN PLATELET VOLUME 7.8 fl (7.4-10.4); PLATELET 341 x1000/uL (130-400); RED BLOOD CELL COUNT 3.43 mill/uL (4.7-6.1); RED CELL DISTRIBUTION WIDTH 16.6 % (11.6-14.6)
[2018-10-06 17:19] LABS: NUCLEATED RED BLOOD CELLS 2 /100 WBC; PLATELET ESTIMATE NORMAL
[2018-10-06] MEDS: PANTOPRAZOLE 40MG DR TABLET PO SCH (18:18)
[2018-10-06] MEDS: POLYETHYLENE GLYCOL 3350 (17GM) 1 DOSE PACK PO SCH (21:00)
[2018-10-06] MEDS: INSULIN GLARGINE UD 100 UNITS/ML SYR SUBCUT SCH (21:23)
[2018-10-07] MEDS: PANTOPRAZOLE 40MG DR TABLET PO SCH ×2 (06:00→17:52)
[2018-10-07] MEDS: INSULIN LISPRO 100 UNITS/ML SUBCUT SCH ×4 (06:01→21:00)
[2018-10-07] MEDS: BLOOD SUGAR DIAGNOSTIC STRIP TEST SCH ×4 (06:01→21:18)
[2018-10-07 08:43] LABS: HEMOGLOBIN. 8.2 g/dL (14.0-18.0); MEAN CORPUSCULAR HEMOGLOBIN 28.4 pg (28.0-32.0); MEAN CORPUSCULAR VOLUME 86.8 fL (80.0-94.0); MEAN PLATELET VOLUME 8.2 fl (7.4-10.4); PLATELET 328 x1000/uL (130-400); RED BLOOD CELL COUNT 2.87 mill/uL (4.7-6.1); RED CELL DISTRIBUTION WIDTH 17.4 % (11.6-14.6)
[2018-10-07 08:49] VITALS: BP 140/44
[2018-10-07 08:50] LABS: HEMATOCRIT. 24.9 % (42.0-52.0)
[2018-10-07] MEDS: DOCUSATE SODIUM 250MG CAPSULE PO SCH ×2 (09:44→17:52)
[2018-10-07] MEDS: RIVAROXABAN 15 MG TABLET PO SCH ×2 (09:44→17:52)
[2018-10-07] MEDS: TAMSULOSIN HCL 0.4MG SR CAPSULE PO SCH (09:44)
[2018-10-07] MEDS: LOSARTAN POTASSIUM 25 MG TABLET PO SCH (09:44)
[2018-10-07] MEDS ORDERED: SIMETHICONE 40 MG/0.6 ML 30ML ONE (10:02)
[2018-10-07] MEDS ORDERED: FENTANYL CITRATE/PF 50MCG/ML 2ML VIAL IV SCH (11:45)
[2018-10-07] MEDS ORDERED: FENTANYL CITRATE/PF 50MCG/ML 2ML VIAL ONE (11:47)
[2018-10-07] MEDS ORDERED: MIDAZOLAM HCL 5 MG/5 ML VIAL ONE (11:47)
[2018-10-07] MEDS ORDERED: MIDAZOLAM HCL 5 MG/5 ML VIAL IV SCH (11:47)
[2018-10-07] MEDS: CEFTRIAXONE 1 G PREMIX 50 ML IV SCH (14:17)
[2018-10-07 17:16] LABS: NUCLEATED RED BLOOD CELLS 2 /100 WBC; PLATELET ESTIMATE NORMAL
[2018-10-07 20:00] VITALS: BP 111/56
[2018-10-07] MEDS: POLYETHYLENE GLYCOL 3350 (17GM) 1 DOSE PACK PO SCH (20:40)
[2018-10-07] MEDS: INSULIN GLARGINE UD 100 UNITS/ML SYR SUBCUT SCH (21:24)
[2018-10-07] MEDS: ONDANSETRON 4MG ODT PO PRN (23:05)
[2018-10-08] MEDS: BLOOD SUGAR DIAGNOSTIC STRIP TEST SCH ×4 (06:02→21:46)
[2018-10-08] MEDS: PANTOPRAZOLE 40MG DR TABLET PO SCH ×2 (06:02→17:47)
[2018-10-08] MEDS: INSULIN LISPRO 100 UNITS/ML SUBCUT SCH ×4 (06:30→21:00)
[2018-10-08 08:55] VITALS: BP 145/58
[2018-10-08] MEDS: LOSARTAN POTASSIUM 25 MG TABLET PO SCH (09:38)
[2018-10-08] MEDS: RIVAROXABAN 15 MG TABLET PO SCH ×2 (09:38→17:47)
[2018-10-08] MEDS: TAMSULOSIN HCL 0.4MG SR CAPSULE PO SCH (09:39)
[2018-10-08] MEDS: DOCUSATE SODIUM 250MG CAPSULE PO SCH ×2 (09:39→17:47)
[2018-10-08 16:27] LABS: BASOPHILS % 1.5 % (0.0-2.0); EOSINOPHILS % 1.4 % (0.0-5.0); HEMATOCRIT. 24.6 % (42.0-52.0); HEMOGLOBIN. 7.9 g/dL (14.0-18.0); LYMPHOCYTES % 22.1 % (20.0-50.0); MEAN CORPUSCULAR VOLUME 89.8 fL (80.0-94.0); MEAN PLATELET VOLUME 8.1 fl (7.4-10.4); PLATELET 305 x1000/uL (130-400); RED BLOOD CELL COUNT 2.74 mill/uL (4.7-6.1); RED CELL DISTRIBUTION WIDTH 17.8 % (11.6-14.6)
[2018-10-08 20:00] VITALS: BP 129/56
[2018-10-08] MEDS: POLYETHYLENE GLYCOL 3350 (17GM) 1 DOSE PACK PO SCH (21:00)
[2018-10-08] MEDS: INSULIN GLARGINE UD 100 UNITS/ML SYR SUBCUT SCH (21:52)
[2018-10-09] MEDS: INSULIN LISPRO 100 UNITS/ML SUBCUT SCH ×2 (06:21→13:00)
[2018-10-09] MEDS: BLOOD SUGAR DIAGNOSTIC STRIP TEST SCH ×2 (06:21→12:03)
[2018-10-09] MEDS: PANTOPRAZOLE 40MG DR TABLET PO SCH (06:21)
[2018-10-09 08:00] VITALS: BP 128/59
[2018-10-09] MEDS: RIVAROXABAN 15 MG TABLET PO SCH (08:54)
[2018-10-09] MEDS: DOCUSATE SODIUM 250MG CAPSULE PO SCH (08:54)
[2018-10-09] MEDS: TAMSULOSIN HCL 0.4MG SR CAPSULE PO SCH (08:54)
[2018-10-09] MEDS: LOSARTAN POTASSIUM 25 MG TABLET PO SCH (08:54)
[2018-10-09 09:30] LABS: HEMATOCRIT. 26.8 % (42.0-52.0); HEMOGLOBIN. 8.5 g/dL (14.0-18.0); MEAN CORPUSCULAR HEMOGLOBIN 28.2 pg (28.0-32.0); MEAN PLATELET VOLUME 8.2 fl (7.4-10.4); PLATELET 358 x1000/uL (130-400); RED BLOOD CELL COUNT 3.02 mill/uL (4.7-6.1); RED CELL DISTRIBUTION WIDTH 17.9 % (11.6-14.6)
[2018-10-09 11:00] LABS: PLATELET ESTIMATE NORMAL
[2018-10-09 12:15] VITALS: BP 128/59
[2018-10-19] MEDS ORDERED: RIVAROXABAN 20 MG TABLET PO SCH (18:00)
== END 2018-10-09 15:05 | disposition home health service (06) | DRG 91 ==
PROVIDERS: ADMIT Physical Medicine & Rehabilitation Spinal Cord Injury Medicine; ATTEND Internal Medicine
PROC: 30233N1 Transfusion of Nonautologous Red Blood Cells into Peripheral Vein, Percutaneous Approach (ICD-10-PCS; 2018-10-05)
PROC: 0DB78ZX Excision of Stomach, Pylorus, Via Natural or Artificial Opening Endoscopic, Diagnostic (ICD-10-PCS; principal; 2018-10-07)
DX: G92 Toxic encephalopathy (principal); I26.99 Other pulmonary embolism without acute cor pulmonale; K29.51 Unspecified chronic gastritis with bleeding; N17.9 Acute kidney failure, unspecified; E44.1 Mild protein-calorie malnutrition; N39.0 Urinary tract infection, site not specified; D68.59 Other primary thrombophilia; Z79.01 Long term (current) use of anticoagulants; R53.81 Other malaise; E11.42 Type 2 diabetes mellitus with diabetic polyneuropathy; E11.22 Type 2 diabetes mellitus with diabetic chronic kidney disease; E11.51 Type 2 diabetes mellitus with diabetic peripheral angiopathy without gangrene; G89.29 Other chronic pain; I25.10 Atherosclerotic heart disease of native coronary artery without angina pectoris; G31.84 Mild cognitive impairment of uncertain or unknown etiology; M54.5 Low back pain; I12.9 Hypertensive chronic kidney disease with stage 1 through stage 4 chronic kidney disease, or unspecified chronic kidney disease; M19.90 Unspecified osteoarthritis, unspecified site; D50.9 Iron deficiency anemia, unspecified; R74.8 Abnormal levels of other serum enzymes; R79.89 Other specified abnormal findings of blood chemistry; R97.20 Elevated prostate specific antigen [PSA]; K44.9 Diaphragmatic hernia without obstruction or gangrene; B96.20 Unspecified Escherichia coli [E. coli] as the cause of diseases classified elsewhere; R26.9 Unspecified abnormalities of gait and mobility; D63.8 Anemia in other chronic diseases classified elsewhere; F06.31 Mood disorder due to known physiological condition with depressive features; S81.811A Laceration without foreign body, right lower leg, initial encounter; X58.XXXA Exposure to other specified factors, initial encounter; B96.89 Other specified bacterial agents as the cause of diseases classified elsewhere; K56.41 Fecal impaction; N18.3 Chronic kidney disease, stage 3 (moderate); Z95.5 Presence of coronary angioplasty implant and graft; Z95.820 Peripheral vascular angioplasty status with implants and grafts; Z83.3 Family history of diabetes mellitus; Z79.899 Other long term (current) drug therapy; Z79.02 Long term (current) use of antithrombotics/antiplatelets; Z87.891 Personal history of nicotine dependence; Y93.89 Activity, other specified; Y92.89 Other specified places as the place of occurrence of the external cause; Y99.8 Other external cause status; Z86.711 Personal history of pulmonary embolism; Z79.4 Long term (current) use of insulin; Z68.25 Body mass index [BMI] 25.0-25.9, adult
CPT/HCPCS: 36415; 70551; 74018; 80048; 80305; 82140; 82270; 82306; 82607; 82728; 82746; 82962; 83036; 83540; 83550; 83735; 84100; 84134; 84153; 84439; 84443; 84481; 84484; 85014; 85018; 85049; 85384; 86850; 86900; 86920; 87077; 87186; 88305; 88312; 88313; 92523; 93970; 94640; 97110; 97112; 97116; 97140; 97150; 97162; 97166; 97530; 97535; C1893; G0482; G0515; J0696; J1815; J2250; J3010; J7040; J7050; J7620; P9016; Q0162; Q0163; G0103

== ENCOUNTER → 2019-02-22 | Outpatient (CLI) | payer MEDICARE ==
[~2019-02-22] MED LIST changes: -ASPI-1159 MT; -BENA40TA9 MT; -CLOP75TA16 MT; -CLOP75TA33 MT; -TRAM50TA3 MT
[2019-02-22 15:51] LABS: BG BASE EXCESS -2.2 mmol/L (-2.0-2.0); BG CARBOXYHEMOGLOBIN 0.7 % (0.5-1.5); BG DEOXYHEMOGLOBIN 5.2 % (0.0-5.0); BG HCO3 ACT 22.1 mmol/L (22.0-26.0); BG METHEMOGLOBIN 0.3 % (0.0-1.5); BG OXYGEN SATURATION 94.7 % (92.0-98.5); BG OXYHEMOGLOBIN 93.8 % (94.0-97.0); BG PCO2 35.2 mmHg (35.0-45.0); BG PH 7.415 (7.350-7.450); BG PO2 79.8 mmHg (75.0-100.0); BG SAMPLE SITE RIGHT RADIAL; BG TOTAL HEMOGLOBIN 7.3 g/dL (12.0-18.0); BG VENT MODE ROOM AIR
== END | disposition home or self-care (01) ==
LOC: RAD 14:54
PROVIDERS: ATTEND Internal Medicine Nephrology
DX: R06.02 Shortness of breath (principal)
CPT/HCPCS: 36600; 71045; 82375; 82805; 94618

== ENCOUNTER → 2019-02-23 | Outpatient (CLI) | payer MEDICARE ==
[2019-02-23 08:59] LABS: BASOPHILS % 1.5 % (0.0-2.0); EOSINOPHILS % 3.2 % (0.0-5.0); LYMPHOCYTES % 39.2 % (20.0-50.0); MEAN CORPUSCULAR HEMOGLOBIN 18.1 pg (28.0-32.0); MEAN CORPUSCULAR VOLUME 62.5 fL (80.0-94.0); MEAN PLATELET VOLUME 8.5 fl (7.4-10.4); MONOCYTES % 14.4 % (2.0-8.0); NEUTROPHILS % 41.7 % (40.0-76.0); PLATELET 301 x1000/uL (130-400); RED BLOOD CELL COUNT 3.54 mill/uL (4.7-6.1); RED CELL DISTRIBUTION WIDTH 22.5 % (11.6-14.6)
[2019-02-23 09:14] LABS: HEMOGLOBIN. 6.4 g/dL (14.0-18.0)
[2019-02-23 09:15] LABS: HEMATOCRIT. 22.1 % (42.0-52.0)
[2019-02-23 09:18] LABS: CLARITY URINE CLEAR (CLEAR); COLOR URINE YELLOW (YELLOW); KETONES URINE NEGATIVE (NEGATIVE); LEUKOCYTE ESTERASE URINE NEGATIVE (NEGATIVE); NITRITE URINE NEGATIVE (NEGATIVE); OCCULT BLOOD URINE NEGATIVE (NEGATIVE); PH URINE 5.5 (4.5-8.0); PROTEIN URINE NEGATIVE (NEGATIVE); SPECIFIC GRAVITY URINE 1.022 (1.005-1.030)
[2019-02-23 09:19] LABS: CHLORIDE 107 mEq/L (98-107)
[2019-02-23 09:24] LABS: PHOSPHORUS 3.6 mg/dL (2.5-4.9)
[2019-02-23 09:25] LABS: LDL CHOLESTEROL 54 mg/dL (5-100)
[2019-02-23 09:28] LABS: HDL CHOLESTEROL 46 mg/dL (40-59)
[2019-02-23 10:01] LABS: PLATELET ESTIMATE NORMAL
[2019-02-24 08:25] LABS: *CREATININE RANDOM URINE 120.8 mg/dL (Not Estab.); MICROALBUMIN RANDOM URINE 15.5 ug/mL (Not Estab.)
== END | disposition home or self-care (01) ==
LOC: LAB 08:15
PROVIDERS: ATTEND Internal Medicine Nephrology
DX: I12.9 Hypertensive chronic kidney disease with stage 1 through stage 4 chronic kidney disease, or unspecified chronic kidney disease (principal); E11.22 Type 2 diabetes mellitus with diabetic chronic kidney disease; N18.3 Chronic kidney disease, stage 3 (moderate); D63.1 Anemia in chronic kidney disease; R60.1 Generalized edema; R82.998 Other abnormal findings in urine
CPT/HCPCS: 36415; 80061; 82043; 82306; 82570; 83036; 83735; 83970; 84100

== ENCOUNTER 2019-06-03 13:01 | Inpatient (IN) | payer MEDICARE ==
[~2019-06-03] VITALS: Ht 182.9 cm; Wt 90.7 kg
[2019-06-03] MEDS: METOPROLOL TARTRATE 25MG TABLET PO SCH (09:00)
[2019-06-03] MEDS ORDERED: SODIUM CHLORIDE 0.9% 500 ML IV ONE (14:00)
[2019-06-03 14:49] LABS: HEMATOCRIT. 32.7 % (42.0-52.0); MEAN CORPUSCULAR HEMOGLOBIN 29.3 pg (28.0-32.0); MEAN CORPUSCULAR VOLUME 87.3 fL (80.0-94.0); MEAN PLATELET VOLUME 8.6 fl (7.4-10.4); PLATELET 201 x1000/uL (130-400); RED BLOOD CELL COUNT 3.75 mill/uL (4.7-6.1); RED CELL DISTRIBUTION WIDTH 22.3 % (11.6-14.6)
[2019-06-03 14:56] LABS: CHLORIDE 108 mEq/L (98-107)
[2019-06-03 14:57] LABS: PARTIAL THROMBOPLASTIN TIME 29.9 sec (23.4-31.0); PROTHROMBIN TIME 10.3 sec (9.6-11.0)
[2019-06-03 15:01] LABS: ETHANOL BLOOD < 10 mg/dL
[2019-06-03 15:06] LABS: CREATINE KINASE 109 IU/L (39-308)
[2019-06-03 15:09] LABS: CREATINE KINASE MB FRACTION 1.2 ng/mL (0.5-3.6)
[2019-06-03 16:13] LABS: PLATELET ESTIMATE NORMAL
[2019-06-03] MEDS ORDERED: LEVOFLOXACIN 750MG PREMIX 150 ML IV ONE (16:30)
[2019-06-03 16:38] LABS: CLARITY URINE CLEAR (CLEAR); COLOR URINE YELLOW (YELLOW); KETONES URINE NEGATIVE (NEGATIVE); LEUKOCYTE ESTERASE URINE NEGATIVE (NEGATIVE); NITRITE URINE NEGATIVE (NEGATIVE); OCCULT BLOOD URINE NEGATIVE (NEGATIVE); PROTEIN URINE NEGATIVE (NEGATIVE); SPECIFIC GRAVITY URINE 1.007 (1.005-1.030)
[2019-06-03] MEDS ORDERED: FUROSEMIDE 40MG/4ML VIAL IVP ONE (16:45)
[2019-06-03] MEDS ORDERED: CLONIDINE 0.2MG TABLET PO ONE (16:45)
[2019-06-03] MEDS ORDERED: ASPIRIN 81MG TABLET PO ONE (16:45)
[2019-06-03 16:49] LABS: METHADONE URINE SCREEN NEGATIVE (NEGATIVE); OPIATES URINE SCREEN NEGATIVE (NEGATIVE)
[2019-06-03 16:50] LABS: *AMPHETAMINES SCREEN URINE NEGATIVE (NEGATIVE); *BARBITURATES SCREEN URINE NEGATIVE (NEGATIVE); *BENZODIAZEPINES SCREEN URINE NEGATIVE (NEGATIVE); *COCAINE SCREEN URINE NEGATIVE (NEGATIVE); CANNABINOID URINE SCREEN NEGATIVE (NEGATIVE); PHENCYCLIDINE URINE SCREEN NEGATIVE (NEGATIVE)
[2019-06-03] MEDS ORDERED: TRAMADOL 50MG TABLET PO PRN (17:15)
[2019-06-03] MEDS ORDERED: LORAZEPAM 0.5MG TABLET PO PRN (17:15)
[2019-06-03] MEDS ORDERED: NITROGLYCERIN 0.4MG TABLET SL SL PRN (17:15)
[2019-06-03] MEDS ORDERED: LEVOFLOXACIN 500MG PREMIX 100 ML IV SCH (17:15)
[2019-06-03] MEDS ORDERED: DIPHENHYDRAMINE 50MG/ML VIAL IV PRN (17:15)
[2019-06-03] MEDS ORDERED: ACETAMINOPHEN 325MG TABLET PO PRN (17:15)
[2019-06-03] MEDS ORDERED: DEXTROSE 50% WATER 50ML SYRINGE IV PRN (17:15)
[2019-06-03] MEDS ORDERED: MORPHINE SULFATE 2 MG/ML CPJ (NOT FOR IM USE) IV PRN (17:15)
[2019-06-03] MEDS ORDERED: MAGNESIUM/ALUMINUM HYDROXIDE/SIMETHICONE 30ML UDC PO PRN (17:15)
[2019-06-03] MEDS ORDERED: ZOLPIDEM TARTRATE 5MG TABLET PO PRN (17:15)
[2019-06-03] MEDS ORDERED: CLONIDINE 0.1MG TABLET PO PRN (17:15)
[2019-06-03] MEDS ORDERED: ONDANSETRON HCL 4MG/2ML INJ IV PRN (17:15)
[2019-06-03] MEDS ORDERED: IPRATROPIUM/ALBUTEROL 0.5-3(2.5)MG/3ML NEB NEB PRN (17:15)
[2019-06-03] MEDS ORDERED: ENOXAPARIN 40MG/0.4ML SYR SUBCUT SCH (17:15)
[2019-06-03] MEDS ORDERED: MORPHINE SULFATE 4 MG/ML CPJ (NOT FOR IM USE) IV ONE (17:15)
[2019-06-03] MEDS ORDERED: ONDANSETRON HCL 4MG/2ML INJ IV ONE (17:15)
[2019-06-03] MEDS ORDERED: GUAIFENESIN 200MG/10ML SUGAR FREE UDC PO PRN (17:15)
[2019-06-03] MEDS ORDERED: DOCUSATE SODIUM 100MG CAPSULE PO PRN (17:15)
[2019-06-03 20:25] LABS: TOTAL IRON BINDING CAPACITY 225 ug/dL (250-450)
[2019-06-03 20:39] LABS: FOLIC ACID (FOLATE) SERUM >20 ng/mL ng/mL (>5.38)
[2019-06-03 20:51] LABS: VITAMIN B12 SERUM 1763 pg/mL (211-911)
[2019-06-03 23:05] VITALS: BP 171/81
[2019-06-03] MEDS ORDERED: POTA10TA20 MT (23:24)
[2019-06-03] MEDS ORDERED: RIVA10TA MT (23:24)
[2019-06-03] MEDS ORDERED: FURO-151 MT (23:24)
[2019-06-03] MEDS ORDERED: LOSA50TA41 MT (23:24)
[2019-06-03] MEDS ORDERED: PROT40 MT (23:24)
[2019-06-03] MEDS ORDERED: FERR325T23 MT (23:24)
[2019-06-04] VITALS: BP 194/71
[2019-06-04] MEDS ORDERED: INSULIN GLARGINE UD 100 UNITS/ML SYR SUBCUT SCH
[2019-06-04] MEDS: METHYLPREDNISOLONE SOD SUCC 125 MG/2 ML VIAL IV SCH ×3 (00:46→13:17)
[2019-06-04] MEDS: SPIRONOLACTONE 25MG TABLET PO SCH ×3 (00:47→22:03)
[2019-06-04] MEDS: FUROSEMIDE 40MG/4ML VIAL IVP SCH ×3 (00:47→22:05)
[2019-06-04] MEDS: ASCORBIC ACID 500 MG TABLET PO SCH ×3 (00:47→22:04)
[2019-06-04] MEDS: SUCRALFATE 1 G/10 ML UDC PO SCH ×5 (00:47→22:05)
[2019-06-04] MEDS: LISINOPRIL 5MG TABLET PO SCH ×3 (00:47→22:04)
[2019-06-04] MEDS: METOPROLOL TARTRATE 25MG TABLET PO SCH (00:48)
[2019-06-04] MEDS: BLOOD SUGAR DIAGNOSTIC STRIP TEST SCH ×5 (00:48→21:00)
[2019-06-04 01:01] LABS: CREATINE KINASE 117 IU/L (39-308)
[2019-06-04] MEDS: INSULIN LISPRO 100 UNITS/ML SUBCUT SCH ×5 (01:01→22:29)
[2019-06-04 01:02] LABS: CREATINE KINASE MB FRACTION 1.5 ng/mL (0.5-3.6)
[2019-06-04 04:00] VITALS: BP 119/53
[2019-06-04] MEDS: PANTOPRAZOLE 40MG DR TABLET PO SCH (06:20)
[2019-06-04 08:00] VITALS: BP 113/54
[2019-06-04 08:08] LABS: CREATINE KINASE 97 IU/L (39-308)
[2019-06-04 08:09] LABS: CREATINE KINASE MB FRACTION 1.4 ng/mL (0.5-3.6)
[2019-06-04] MEDS: ZINC SULFATE 220 MG ( 50 ) CAPSULE PO SCH (08:40)
[2019-06-04] MEDS: GUAIFENESIN/DM 600MG/30MG ER TAB 12HR PO SCH ×2 (08:40→22:03)
[2019-06-04] MEDS: ENOXAPARIN 30MG/0.3ML SYR SUBCUT SCH ×2 (08:41→22:03)
[2019-06-04 12:08] VITALS: BP 110/54
[2019-06-04 16:11] VITALS: BP 102/50
[2019-06-04] MEDS ORDERED: LEVOFLOXACIN 250MG PREMIX 50 ML IV SCH (17:00)
[2019-06-04 17:34] LABS: BASOPHILS % 0.3 % (0.0-2.0); HEMATOCRIT. 33.6 % (42.0-52.0); HEMOGLOBIN. 11.1 g/dL (14.0-18.0); LYMPHOCYTES % 14.9 % (20.0-50.0); MEAN CORPUSCULAR HEMOGLOBIN 28.8 pg (28.0-32.0); MEAN CORPUSCULAR VOLUME 87.6 fL (80.0-94.0); MEAN PLATELET VOLUME 9.4 fl (7.4-10.4); MONOCYTES % 2.4 % (2.0-8.0); NEUTROPHILS % 82.4 % (40.0-76.0); PLATELET 202 x1000/uL (130-400); RED BLOOD CELL COUNT 3.83 mill/uL (4.7-6.1); RED CELL DISTRIBUTION WIDTH 21.3 % (11.6-14.6)
[2019-06-04 20:00] VITALS: BP 128/61
[2019-06-05] VITALS: BP 104/37
[2019-06-05] MEDS: INSULIN GLARGINE UD 100 UNITS/ML SYR SUBCUT SCH ×2 (00:25→22:18)
[2019-06-05 04:00] VITALS: BP 142/73
[2019-06-05] MEDS: SUCRALFATE 1 G/10 ML UDC PO SCH ×3 (06:44→22:37)
[2019-06-05] MEDS: BLOOD SUGAR DIAGNOSTIC STRIP TEST SCH ×4 (06:44→21:00)
[2019-06-05] MEDS: PANTOPRAZOLE 40MG DR TABLET PO SCH (06:44)
[2019-06-05 08:00] VITALS: BP 107/69
[2019-06-05] MEDS: ZINC SULFATE 220 MG ( 50 ) CAPSULE PO SCH (08:29)
[2019-06-05] MEDS: ASCORBIC ACID 500 MG TABLET PO SCH ×2 (08:31→22:22)
[2019-06-05] MEDS: GUAIFENESIN/DM 600MG/30MG ER TAB 12HR PO SCH ×2 (08:31→22:33)
[2019-06-05] MEDS: FUROSEMIDE 40MG/4ML VIAL IVP SCH ×2 (08:31→22:22)
[2019-06-05] MEDS: ENOXAPARIN 30MG/0.3ML SYR SUBCUT SCH ×2 (08:31→22:22)
[2019-06-05] MEDS: LISINOPRIL 5MG TABLET PO SCH ×2 (08:42→22:33)
[2019-06-05] MEDS: SPIRONOLACTONE 25MG TABLET PO SCH ×2 (08:43→22:34)
[2019-06-05] MEDS: INSULIN LISPRO 100 UNITS/ML SUBCUT SCH ×4 (08:44→22:17)
[2019-06-05 16:00] VITALS: BP 124/86
[2019-06-05] MEDS: METOPROLOL TARTRATE 25MG TABLET PO SCH (22:22)
[2019-06-06] MEDS: IPRATROPIUM/ALBUTEROL 0.5-3(2.5)MG/3ML NEB HHN SCH ×4 (00:34→14:28)
[2019-06-06 04:00] VITALS: BP 123/53
[2019-06-06] MEDS: BLOOD SUGAR DIAGNOSTIC STRIP TEST SCH ×2 (06:17→13:06)
[2019-06-06] MEDS: SUCRALFATE 1 G/10 ML UDC PO SCH ×2 (06:17→13:53)
[2019-06-06] MEDS: INSULIN LISPRO 100 UNITS/ML SUBCUT SCH ×2 (07:50→12:50)
[2019-06-06 08:00] VITALS: BP 107/38
[2019-06-06] MEDS: LISINOPRIL 5MG TABLET PO SCH (08:44)
[2019-06-06] MEDS: METOPROLOL TARTRATE 25MG TABLET PO SCH (08:44)
[2019-06-06] MEDS: ASCORBIC ACID 500 MG TABLET PO SCH (09:00)
[2019-06-06] MEDS: SPIRONOLACTONE 25MG TABLET PO SCH (09:00)
[2019-06-06] MEDS: ZINC SULFATE 220 MG ( 50 ) CAPSULE PO SCH (09:00)
[2019-06-06] MEDS ORDERED: FAMOTIDINE 20MG TABLET PO SCH (09:00)
[2019-06-06] MEDS: GUAIFENESIN/DM 600MG/30MG ER TAB 12HR PO SCH (09:00)
[2019-06-06] MEDS: FUROSEMIDE 40MG/4ML VIAL IVP SCH (09:01)
[2019-06-06] MEDS: ENOXAPARIN 30MG/0.3ML SYR SUBCUT SCH (09:01)
[2019-06-06] MEDS ORDERED: LEVOFLOXACIN 250MG TABLET PO SCH (11:00)
[2019-06-06 12:00] VITALS: BP 117/48
[2019-06-06 15:16] VITALS: BP 117/48
== END 2019-06-06 16:13 | DRG 291 ==
LOC: ER 13:01 → 6WST 17:06 → EDBEDREQ 17:09 → EDBEDREQTM 17:09 → ENRESERV 20:36
PROVIDERS: ADMIT Internal Medicine; ATTEND Internal Medicine
DX: I13.0 Hypertensive heart and chronic kidney disease with heart failure and stage 1 through stage 4 chronic kidney disease, or unspecified chronic kidney disease (principal); I50.33 Acute on chronic diastolic (congestive) heart failure; J96.00 Acute respiratory failure, unspecified whether with hypoxia or hypercapnia; N17.0 Acute kidney failure with tubular necrosis; J44.1 Chronic obstructive pulmonary disease with (acute) exacerbation; E83.51 Hypocalcemia; G89.29 Other chronic pain; E11.22 Type 2 diabetes mellitus with diabetic chronic kidney disease; D64.9 Anemia, unspecified; E11.40 Type 2 diabetes mellitus with diabetic neuropathy, unspecified; N40.0 Benign prostatic hyperplasia without lower urinary tract symptoms; I25.10 Atherosclerotic heart disease of native coronary artery without angina pectoris; N18.9 Chronic kidney disease, unspecified; E11.51 Type 2 diabetes mellitus with diabetic peripheral angiopathy without gangrene; M54.9 Dorsalgia, unspecified; E11.42 Type 2 diabetes mellitus with diabetic polyneuropathy; Z86.711 Personal history of pulmonary embolism; Z86.718 Personal history of other venous thrombosis and embolism; Z79.899 Other long term (current) drug therapy; Z87.01 Personal history of pneumonia (recurrent); Z79.4 Long term (current) use of insulin
CPT/HCPCS: 36415; 71045; 72192; 73700; 78582; 80305; 80320; 81003; 82550; 82553; 82607; 82746; 82962; 83036; 83540; 83550; 83605; 83880; 84443; 84484; 93005; 93970; 94640; 96374; 97116; 97162; 97166; 97530; 99285; A9558; J1650; J1815; J1940; J1956; J2270; J2405; J2930; J7040; J7620; G0480

== ENCOUNTER 2019-06-06 16:10 | Inpatient (IN) | payer MEDICARE ==
[~2019-06-06] VITALS: Ht 188 cm; Wt 89.8 kg
[~2019-06-06 16:10] MED LIST changes: +FERR325T23 MT; +FURO-151 MT; +LOSA50TA41 MT; +POTA10TA20 MT; +PROT40 MT; +RIVA10TA MT
[2019-06-06 17:21] VITALS: BP 116/60
[2019-06-06] MEDS ORDERED: CLONIDINE 0.1MG TABLET PO PRN (17:30)
[2019-06-06] MEDS ORDERED: ONDANSETRON 4MG ODT PO PRN (17:30)
[2019-06-06] MEDS ORDERED: DIPHENHYDRAMINE 25MG CAPSULE PO PRN (17:30)
[2019-06-06] MEDS ORDERED: ACETAMINOPHEN 650MG/20.3ML UDC PO PRN (17:30)
[2019-06-06] MEDS ORDERED: MAGNESIUM/ALUMINUM HYDROXIDE/SIMETHICONE 30ML UDC PO PRN (17:30)
[2019-06-06] MEDS ORDERED: DEXTROSE 50% WATER 50ML SYRINGE IV PRN (17:30)
[2019-06-06] MEDS ORDERED: GUAIFENESIN 200MG/10ML SUGAR FREE UDC PO PRN (17:30)
[2019-06-06] MEDS ORDERED: LORAZEPAM 0.5MG TABLET PO PRN (17:30)
[2019-06-06] MEDS ORDERED: NITROGLYCERIN 0.4MG TABLET SL SL PRN (17:45)
[2019-06-06] MEDS: FUROSEMIDE 40MG TABLET PO SCH (19:15)
[2019-06-06 20:00] VITALS: BP 126/70
[2019-06-06] MEDS ORDERED: IPRATROPIUM/ALBUTEROL 0.5-3(2.5)MG/3ML NEB HHN SCH (20:00)
[2019-06-06] MEDS: IPRATROPIUM/ALBUTEROL 0.5-3(2.5)MG/3ML NEB HHN SCH (20:36)
[2019-06-06] MEDS: LISINOPRIL 5MG TABLET PO SCH (21:00)
[2019-06-06] MEDS ORDERED: ZOLPIDEM TARTRATE 5MG TABLET PO PRN (21:00)
[2019-06-06] MEDS: SPIRONOLACTONE 25MG TABLET PO SCH (21:00)
[2019-06-06] MEDS: SUCRALFATE 1G TABLET PO SCH (21:55)
[2019-06-06] MEDS: METOPROLOL TARTRATE 25MG TABLET PO SCH (21:56)
[2019-06-06] MEDS: GUAIFENESIN/DM 600MG/30MG ER TAB 12HR PO SCH (21:56)
[2019-06-06] MEDS: ASCORBIC ACID 500 MG TABLET PO SCH (21:56)
[2019-06-06] MEDS: BLOOD SUGAR DIAGNOSTIC STRIP TEST SCH (21:57)
[2019-06-06] MEDS: ENOXAPARIN 30MG/0.3ML SYR SUBCUT SCH (22:35)
[2019-06-06] MEDS: INSULIN LISPRO 100 UNITS/ML SUBCUT SCH (22:38)
[2019-06-06] MEDS: INSULIN GLARGINE UD 100 UNITS/ML SYR SUBCUT SCH (22:39)
[2019-06-07] MEDS: IPRATROPIUM/ALBUTEROL 0.5-3(2.5)MG/3ML NEB HHN SCH ×5 (00:14→17:33)
[2019-06-07 06:13] VITALS: BP 130/69
[2019-06-07] MEDS: SUCRALFATE 1G TABLET PO SCH ×4 (06:13→21:59)
[2019-06-07] MEDS: FUROSEMIDE 40MG TABLET PO SCH ×2 (06:13→16:34)
[2019-06-07] MEDS: BLOOD SUGAR DIAGNOSTIC STRIP TEST SCH ×4 (07:11→21:00)
[2019-06-07] MEDS: INSULIN LISPRO 100 UNITS/ML SUBCUT SCH ×4 (07:11→22:01)
[2019-06-07 07:27] LABS: HEMATOCRIT. 36.3 % (42.0-52.0); HEMOGLOBIN. 11.9 g/dL (14.0-18.0); MEAN CORPUSCULAR HEMOGLOBIN 28.9 pg (28.0-32.0); MEAN CORPUSCULAR VOLUME 88.2 fL (80.0-94.0); PLATELET 265 x1000/uL (130-400); RED BLOOD CELL COUNT 4.11 mill/uL (4.7-6.1); RED CELL DISTRIBUTION WIDTH 21.6 % (11.6-14.6)
[2019-06-07 07:31] LABS: CHLORIDE 107 mEq/L (98-107)
[2019-06-07] MEDS: GUAIFENESIN/DM 600MG/30MG ER TAB 12HR PO SCH ×2 (08:41→21:59)
[2019-06-07] MEDS: ZINC SULFATE 220 MG ( 50 ) CAPSULE PO SCH (08:41)
[2019-06-07] MEDS: FAMOTIDINE 20MG TABLET PO SCH (08:42)
[2019-06-07] MEDS: METOPROLOL TARTRATE 25MG TABLET PO SCH ×2 (08:42→22:00)
[2019-06-07] MEDS: SPIRONOLACTONE 25MG TABLET PO SCH ×2 (08:42→21:59)
[2019-06-07] MEDS: ASCORBIC ACID 500 MG TABLET PO SCH ×2 (08:42→21:59)
[2019-06-07] MEDS: LISINOPRIL 5MG TABLET PO SCH ×2 (08:43→21:00)
[2019-06-07] MEDS: ENOXAPARIN 30MG/0.3ML SYR SUBCUT SCH (08:44)
[2019-06-07 12:53] LABS: PLATELET ESTIMATE NORMAL
[2019-06-07] MEDS: TRAMADOL 50MG TABLET PO PRN (12:53)
[2019-06-07 20:00] VITALS: BP 142/64
[2019-06-07 21:58] LABS: CLARITY URINE CLEAR (CLEAR); COLOR URINE YELLOW (YELLOW); KETONES URINE NEGATIVE (NEGATIVE); LEUKOCYTE ESTERASE URINE NEGATIVE (NEGATIVE); NITRITE URINE NEGATIVE (NEGATIVE); OCCULT BLOOD URINE NEGATIVE (NEGATIVE); PH URINE 5.5 (4.5-8.0); PROTEIN URINE NEGATIVE (NEGATIVE); SPECIFIC GRAVITY URINE 1.015 (1.005-1.030); UROBILINOGEN URINE 0.2 E.U./dL (0.2-1.0)
[2019-06-07] MEDS: INSULIN GLARGINE UD 100 UNITS/ML SYR SUBCUT SCH (22:02)
[2019-06-08] MEDS: IPRATROPIUM/ALBUTEROL 0.5-3(2.5)MG/3ML NEB HHN SCH ×5 (01:42→21:25)
[2019-06-08 06:12] VITALS: BP 129/69
[2019-06-08] MEDS: FUROSEMIDE 40MG TABLET PO SCH (06:12)
[2019-06-08] MEDS: SUCRALFATE 1G TABLET PO SCH ×5 (06:12→22:01)
[2019-06-08] MEDS: BLOOD SUGAR DIAGNOSTIC STRIP TEST SCH ×4 (06:46→21:00)
[2019-06-08 06:47] LABS: HEMATOCRIT. 35.2 % (42.0-52.0); HEMOGLOBIN. 11.5 g/dL (14.0-18.0); MEAN CORPUSCULAR VOLUME 88.5 fL (80.0-94.0); PLATELET 260 x1000/uL (130-400); RED BLOOD CELL COUNT 3.98 mill/uL (4.7-6.1); RED CELL DISTRIBUTION WIDTH 19.4 % (11.6-14.6)
[2019-06-08] MEDS: INSULIN LISPRO 100 UNITS/ML SUBCUT SCH ×4 (06:48→22:14)
[2019-06-08 06:55] LABS: CHLORIDE 106 mEq/L (98-107)
[2019-06-08 07:07] LABS: PHOSPHORUS 3.4 mg/dL (2.5-4.9)
[2019-06-08 07:10] LABS: TOTAL IRON BINDING CAPACITY 243 ug/dL (250-450)
[2019-06-08 07:13] LABS: FOLIC ACID (FOLATE) SERUM >20 ng/mL ng/mL (>5.38)
[2019-06-08 07:17] LABS: FERRITIN 415 ng/mL (22-322)
[2019-06-08 07:18] LABS: PROSTRATE SPECIFIC AG TOTAL 34.29 ng/mL (0.0-4.0)
[2019-06-08 07:24] LABS: VITAMIN B12 SERUM 1833 pg/mL (211-911)
[2019-06-08 08:01] VITALS: BP 144/67
[2019-06-08] MEDS: FAMOTIDINE 20MG TABLET PO SCH (08:18)
[2019-06-08] MEDS: ASCORBIC ACID 500 MG TABLET PO SCH ×4 (08:18→22:05)
[2019-06-08] MEDS: GUAIFENESIN/DM 600MG/30MG ER TAB 12HR PO SCH ×5 (08:18→22:10)
[2019-06-08] MEDS: ZINC SULFATE 220 MG ( 50 ) CAPSULE PO SCH (08:18)
[2019-06-08] MEDS: SPIRONOLACTONE 25MG TABLET PO SCH ×4 (08:18→22:05)
[2019-06-08] MEDS: METOPROLOL TARTRATE 25MG TABLET PO SCH ×2 (08:19→23:13)
[2019-06-08] MEDS: LISINOPRIL 5MG TABLET PO SCH ×4 (08:19→22:06)
[2019-06-08] MEDS: ENOXAPARIN 30MG/0.3ML SYR SUBCUT SCH (08:20)
[2019-06-08] MEDS: TRAMADOL 50MG TABLET PO PRN (09:20)
[2019-06-08 11:14] LABS: PLATELET ESTIMATE NORMAL
[2019-06-08 20:00] VITALS: BP 125/51
[2019-06-08] MEDS: INSULIN GLARGINE UD 100 UNITS/ML SYR SUBCUT SCH (23:18)
[2019-06-09] MEDS: IPRATROPIUM/ALBUTEROL 0.5-3(2.5)MG/3ML NEB HHN SCH ×7 (01:27→23:45)
[2019-06-09] MEDS: SUCRALFATE 1G TABLET PO SCH ×4 (05:46→21:30)
[2019-06-09 06:47] LABS: BASOPHILS % 0.8 % (0.0-2.0); EOSINOPHILS % 4.2 % (0.0-5.0); HEMATOCRIT. 32.7 % (42.0-52.0); HEMOGLOBIN. 10.6 g/dL (14.0-18.0); LYMPHOCYTES % 31.6 % (20.0-50.0); MEAN CORPUSCULAR HEMOGLOBIN 28.7 pg (28.0-32.0); MEAN CORPUSCULAR VOLUME 88.3 fL (80.0-94.0); MEAN PLATELET VOLUME 8.6 fl (7.4-10.4); MONOCYTES % 14.9 % (2.0-8.0); NEUTROPHILS % 48.5 % (40.0-76.0); PLATELET 235 x1000/uL (130-400); RED BLOOD CELL COUNT 3.71 mill/uL (4.7-6.1)
[2019-06-09 07:07] LABS: PHOSPHORUS 3.8 mg/dL (2.5-4.9)
[2019-06-09 07:54] VITALS: BP 138/56
[2019-06-09] MEDS: ENOXAPARIN 30MG/0.3ML SYR SUBCUT SCH (08:10)
[2019-06-09] MEDS: ZINC SULFATE 220 MG ( 50 ) CAPSULE PO SCH (08:10)
[2019-06-09] MEDS: ASCORBIC ACID 500 MG TABLET PO SCH ×2 (08:11→21:30)
[2019-06-09] MEDS: GUAIFENESIN/DM 600MG/30MG ER TAB 12HR PO SCH ×2 (08:11→21:30)
[2019-06-09] MEDS: METOPROLOL TARTRATE 25MG TABLET PO SCH ×2 (08:11→21:30)
[2019-06-09] MEDS: SPIRONOLACTONE 25MG TABLET PO SCH ×2 (08:11→21:30)
[2019-06-09] MEDS: LISINOPRIL 5MG TABLET PO SCH (08:11)
[2019-06-09] MEDS: FAMOTIDINE 20MG TABLET PO SCH (08:11)
[2019-06-09] MEDS: LIDOCAINE 5% PATCH TOP SCH (08:52)
[2019-06-09] MEDS: TRAMADOL 50MG TABLET PO PRN (09:52)
[2019-06-09] MEDS: BLOOD SUGAR DIAGNOSTIC STRIP TEST SCH ×3 (11:25→21:31)
[2019-06-09] MEDS: INSULIN LISPRO 100 UNITS/ML SUBCUT SCH ×3 (13:00→21:48)
[2019-06-09 20:00] VITALS: BP 125/78
[2019-06-09] MEDS ORDERED: LACTULOSE 20G/30ML UDC PO SCH (21:00)
[2019-06-09] MEDS: INSULIN GLARGINE UD 100 UNITS/ML SYR SUBCUT SCH (21:48)
[2019-06-10] MEDS: IPRATROPIUM/ALBUTEROL 0.5-3(2.5)MG/3ML NEB HHN SCH ×5 (04:12→22:00)
[2019-06-10] MEDS: BLOOD SUGAR DIAGNOSTIC STRIP TEST SCH ×4 (05:49→21:34)
[2019-06-10] MEDS: SUCRALFATE 1G TABLET PO SCH ×4 (05:50→21:33)
[2019-06-10] MEDS: INSULIN LISPRO 100 UNITS/ML SUBCUT SCH ×4 (05:54→21:52)
[2019-06-10 07:19] LABS: HEMATOCRIT. 31.7 % (42.0-52.0); HEMOGLOBIN. 10.4 g/dL (14.0-18.0); MEAN CORPUSCULAR HEMOGLOBIN 28.9 pg (28.0-32.0); MEAN CORPUSCULAR VOLUME 88.3 fL (80.0-94.0); MEAN PLATELET VOLUME 8.8 fl (7.4-10.4); PLATELET 225 x1000/uL (130-400); RED BLOOD CELL COUNT 3.59 mill/uL (4.7-6.1); RED CELL DISTRIBUTION WIDTH 17.4 % (11.6-14.6)
[2019-06-10 07:50] LABS: PHOSPHORUS 3.5 mg/dL (2.5-4.9)
[2019-06-10 07:59] VITALS: BP 113/54
[2019-06-10 08:07] LABS: *CREATININE RANDOM URINE 152.8 mg/dL (Not Estab.); MICROALBUMIN RANDOM URINE 12.3 ug/mL (Not Estab.)
[2019-06-10] MEDS: ZINC SULFATE 220 MG ( 50 ) CAPSULE PO SCH (08:25)
[2019-06-10] MEDS: TRAMADOL 50MG TABLET PO PRN ×2 (08:25→14:02)
[2019-06-10] MEDS: FAMOTIDINE 20MG TABLET PO SCH (08:25)
[2019-06-10] MEDS: GUAIFENESIN/DM 600MG/30MG ER TAB 12HR PO SCH ×2 (08:25→21:33)
[2019-06-10] MEDS: ASCORBIC ACID 500 MG TABLET PO SCH ×2 (08:25→21:33)
[2019-06-10] MEDS: SPIRONOLACTONE 25MG TABLET PO SCH ×2 (08:26→21:33)
[2019-06-10] MEDS: LIDOCAINE 5% PATCH TOP SCH (08:26)
[2019-06-10] MEDS: DOCUSATE SODIUM 100MG CAPSULE PO PRN (08:26)
[2019-06-10] MEDS: METOPROLOL TARTRATE 25MG TABLET PO SCH (08:27)
[2019-06-10] MEDS: ENOXAPARIN 30MG/0.3ML SYR SUBCUT SCH (08:27)
[2019-06-10 12:44] LABS: PLATELET ESTIMATE NORMAL
[2019-06-10 20:00] VITALS: BP 140/65
[2019-06-10] MEDS: INSULIN GLARGINE UD 100 UNITS/ML SYR SUBCUT SCH (21:52)
[2019-06-11] MEDS: IPRATROPIUM/ALBUTEROL 0.5-3(2.5)MG/3ML NEB HHN SCH ×7 (01:31→23:59)
[2019-06-11] MEDS: BLOOD SUGAR DIAGNOSTIC STRIP TEST SCH ×4 (05:35→20:26)
[2019-06-11] MEDS: SUCRALFATE 1G TABLET PO SCH ×4 (05:37→20:26)
[2019-06-11] MEDS: INSULIN LISPRO 100 UNITS/ML SUBCUT SCH ×4 (05:37→21:55)
[2019-06-11 07:44] VITALS: BP 136/69
[2019-06-11] MEDS: GUAIFENESIN/DM 600MG/30MG ER TAB 12HR PO SCH ×2 (08:28→20:26)
[2019-06-11] MEDS: ASCORBIC ACID 500 MG TABLET PO SCH ×2 (08:28→20:26)
[2019-06-11] MEDS: ZINC SULFATE 220 MG ( 50 ) CAPSULE PO SCH (08:28)
[2019-06-11] MEDS: LIDOCAINE 5% PATCH TOP SCH (08:28)
[2019-06-11] MEDS: ENOXAPARIN 30MG/0.3ML SYR SUBCUT SCH (08:28)
[2019-06-11] MEDS: SPIRONOLACTONE 25MG TABLET PO SCH ×2 (08:28→20:26)
[2019-06-11] MEDS: FAMOTIDINE 20MG TABLET PO SCH (08:28)
[2019-06-11] MEDS: TRAMADOL 50MG TABLET PO PRN (08:35)
[2019-06-11 13:05] LABS: CLARITY URINE CLEAR (CLEAR); COLOR URINE YELLOW (YELLOW); KETONES URINE NEGATIVE (NEGATIVE); LEUKOCYTE ESTERASE URINE NEGATIVE (NEGATIVE); NITRITE URINE NEGATIVE (NEGATIVE); OCCULT BLOOD URINE NEGATIVE (NEGATIVE); PH URINE 5.5 (4.5-8.0); PROTEIN URINE NEGATIVE (NEGATIVE); SPECIFIC GRAVITY URINE 1.013 (1.005-1.030); UROBILINOGEN URINE 0.2 E.U./dL (0.2-1.0)
[2019-06-11 19:40] VITALS: BP 152/51
[2019-06-11] MEDS: INSULIN GLARGINE UD 100 UNITS/ML SYR SUBCUT SCH (21:57)
[2019-06-12] MEDS: IPRATROPIUM/ALBUTEROL 0.5-3(2.5)MG/3ML NEB HHN SCH ×2 (04:37→08:23)
[2019-06-12] MEDS: BLOOD SUGAR DIAGNOSTIC STRIP TEST SCH ×4 (05:50→20:36)
[2019-06-12] MEDS: INSULIN LISPRO 100 UNITS/ML SUBCUT SCH ×4 (05:50→20:39)
[2019-06-12] MEDS: SUCRALFATE 1G TABLET PO SCH ×4 (05:50→20:36)
[2019-06-12 06:59] LABS: HEMATOCRIT. 32.3 % (42.0-52.0); HEMOGLOBIN. 10.6 g/dL (14.0-18.0); MEAN CORPUSCULAR HEMOGLOBIN 28.9 pg (28.0-32.0); MEAN CORPUSCULAR VOLUME 88.3 fL (80.0-94.0); MEAN PLATELET VOLUME 9.1 fl (7.4-10.4); PLATELET 247 x1000/uL (130-400); RED BLOOD CELL COUNT 3.66 mill/uL (4.7-6.1); RED CELL DISTRIBUTION WIDTH 16.3 % (11.6-14.6)
[2019-06-12 07:46] VITALS: BP 166/62
[2019-06-12 08:03] LABS: PHOSPHORUS 2.7 mg/dL (2.5-4.9)
[2019-06-12] MEDS: GUAIFENESIN/DM 600MG/30MG ER TAB 12HR PO SCH ×2 (08:37→20:35)
[2019-06-12] MEDS: TAMSULOSIN HCL 0.4MG SR CAPSULE PO SCH (08:37)
[2019-06-12] MEDS: FAMOTIDINE 20MG TABLET PO SCH (08:38)
[2019-06-12] MEDS: LIDOCAINE 5% PATCH TOP SCH (08:38)
[2019-06-12] MEDS: SPIRONOLACTONE 25MG TABLET PO SCH ×2 (08:38→20:35)
[2019-06-12] MEDS: ENOXAPARIN 30MG/0.3ML SYR SUBCUT SCH (08:38)
[2019-06-12] MEDS: ASCORBIC ACID 500 MG TABLET PO SCH ×2 (08:38→20:35)
[2019-06-12] MEDS: ZINC SULFATE 220 MG ( 50 ) CAPSULE PO SCH (08:38)
[2019-06-12] MEDS ORDERED: ZOLPIDEM TARTRATE 5MG TABLET PO PRN (13:45)
[2019-06-12 13:47] LABS: NUCLEATED RED BLOOD CELLS 1 /100 WBC; PLATELET ESTIMATE NORMAL
[2019-06-12] MEDS: AMLODIPINE 5MG TABLET PO SCH (13:54)
[2019-06-12] MEDS ORDERED: PHENAZOPYRIDINE HCL 100MG TABLET PO NR (14:00)
[2019-06-12] MEDS: TRAMADOL 50MG TABLET PO PRN (17:06)
[2019-06-12 20:00] VITALS: BP 140/69
[2019-06-12] MEDS: IPRATROPIUM/ALBUTEROL 0.5-3(2.5)MG/3ML NEB HHN PRN (20:17)
[2019-06-12] MEDS: INSULIN GLARGINE UD 100 UNITS/ML SYR SUBCUT SCH (21:55)
[2019-06-13] MEDS: BLOOD SUGAR DIAGNOSTIC STRIP TEST SCH ×4 (06:26→20:55)
[2019-06-13] MEDS: SUCRALFATE 1G TABLET PO SCH ×4 (06:31→20:55)
[2019-06-13 07:30] LABS: HEMATOCRIT. 33.8 % (42.0-52.0); HEMOGLOBIN. 10.9 g/dL (14.0-18.0); MEAN CORPUSCULAR HEMOGLOBIN 28.7 pg (28.0-32.0); MEAN CORPUSCULAR VOLUME 89.3 fL (80.0-94.0); MEAN PLATELET VOLUME 8.6 fl (7.4-10.4); PLATELET 235 x1000/uL (130-400); RED BLOOD CELL COUNT 3.79 mill/uL (4.7-6.1); RED CELL DISTRIBUTION WIDTH 15.9 % (11.6-14.6)
[2019-06-13 07:46] LABS: PHOSPHORUS 2.7 mg/dL (2.5-4.9)
[2019-06-13 08:00] VITALS: BP 172/67
[2019-06-13] MEDS: ENOXAPARIN 30MG/0.3ML SYR SUBCUT SCH (08:54)
[2019-06-13] MEDS: TAMSULOSIN HCL 0.4MG SR CAPSULE PO SCH (08:55)
[2019-06-13] MEDS: AMLODIPINE 5MG TABLET PO SCH (08:55)
[2019-06-13] MEDS: SPIRONOLACTONE 25MG TABLET PO SCH (08:55)
[2019-06-13] MEDS: ZINC SULFATE 220 MG ( 50 ) CAPSULE PO SCH (08:55)
[2019-06-13] MEDS: LIDOCAINE 5% PATCH TOP SCH (08:55)
[2019-06-13] MEDS: GUAIFENESIN/DM 600MG/30MG ER TAB 12HR PO SCH ×2 (08:55→20:55)
[2019-06-13] MEDS: DOCUSATE SODIUM 100MG CAPSULE PO PRN (08:55)
[2019-06-13] MEDS: FAMOTIDINE 20MG TABLET PO SCH (08:55)
[2019-06-13] MEDS: ASCORBIC ACID 500 MG TABLET PO SCH ×2 (08:55→20:55)
[2019-06-13] MEDS: INSULIN LISPRO 100 UNITS/ML SUBCUT SCH ×4 (08:56→21:01)
[2019-06-13] MEDS: TRAMADOL 50MG TABLET PO PRN (10:41)
[2019-06-13] MEDS ORDERED: SODIUM POLYSTYRENE SULFONATE 15 G/60 ML BOT PO SCH (14:00)
[2019-06-13 14:10] LABS: PLATELET ESTIMATE NORMAL
[2019-06-13 15:12] LABS: 25-HYDROXY VITAMIN D3 18 ng/mL (.)
[2019-06-13 20:00] VITALS: BP 143/74
[2019-06-13] MEDS: INSULIN GLARGINE UD 100 UNITS/ML SYR SUBCUT SCH (21:14)
[2019-06-14] MEDS: BLOOD SUGAR DIAGNOSTIC STRIP TEST SCH ×4 (05:55→21:08)
[2019-06-14] MEDS: SUCRALFATE 1G TABLET PO SCH ×4 (05:55→21:08)
[2019-06-14] MEDS: INSULIN LISPRO 100 UNITS/ML SUBCUT SCH ×4 (05:56→21:11)
[2019-06-14 06:27] LABS: HEMATOCRIT. 31.5 % (42.0-52.0); HEMOGLOBIN. 10.4 g/dL (14.0-18.0); MEAN CORPUSCULAR HEMOGLOBIN 29.2 pg (28.0-32.0); MEAN CORPUSCULAR VOLUME 88.2 fL (80.0-94.0); MEAN PLATELET VOLUME 8.6 fl (7.4-10.4); PLATELET 231 x1000/uL (130-400); RED BLOOD CELL COUNT 3.57 mill/uL (4.7-6.1)
[2019-06-14 07:13] LABS: PHOSPHORUS 2.9 mg/dL (2.5-4.9)
[2019-06-14 07:56] VITALS: BP 151/76
[2019-06-14] MEDS: LIDOCAINE 5% PATCH TOP SCH (08:41)
[2019-06-14] MEDS: ZINC SULFATE 220 MG ( 50 ) CAPSULE PO SCH (08:42)
[2019-06-14] MEDS: TAMSULOSIN HCL 0.4MG SR CAPSULE PO SCH (08:42)
[2019-06-14] MEDS: GUAIFENESIN/DM 600MG/30MG ER TAB 12HR PO SCH ×2 (08:42→21:08)
[2019-06-14] MEDS: ASCORBIC ACID 500 MG TABLET PO SCH ×2 (08:42→21:08)
[2019-06-14] MEDS: AMLODIPINE 5MG TABLET PO SCH (08:42)
[2019-06-14] MEDS: FAMOTIDINE 20MG TABLET PO SCH (08:42)
[2019-06-14] MEDS: TRAMADOL 50MG TABLET PO PRN (08:54)
[2019-06-14 16:05] LABS: ATYPICAL LYMPHOCYTES 1; PLATELET ESTIMATE NORMAL
[2019-06-14 20:00] VITALS: BP 147/72
[2019-06-14] MEDS: INSULIN GLARGINE UD 100 UNITS/ML SYR SUBCUT SCH (21:10)
[2019-06-14] MEDS: IPRATROPIUM/ALBUTEROL 0.5-3(2.5)MG/3ML NEB HHN PRN (21:29)
[2019-06-15] MEDS: INSULIN LISPRO 100 UNITS/ML SUBCUT SCH ×4 (05:51→22:28)
[2019-06-15] MEDS: SUCRALFATE 1G TABLET PO SCH ×4 (06:03→21:52)
[2019-06-15] MEDS: BLOOD SUGAR DIAGNOSTIC STRIP TEST SCH ×4 (06:03→21:52)
[2019-06-15 07:50] VITALS: BP 152/69
[2019-06-15] MEDS: FAMOTIDINE 20MG TABLET PO SCH (08:41)
[2019-06-15] MEDS: LIDOCAINE 5% PATCH TOP SCH (08:41)
[2019-06-15] MEDS: ASCORBIC ACID 500 MG TABLET PO SCH ×2 (08:42→21:52)
[2019-06-15] MEDS: ZINC SULFATE 220 MG ( 50 ) CAPSULE PO SCH (08:42)
[2019-06-15] MEDS: AMLODIPINE 5MG TABLET PO SCH (08:42)
[2019-06-15] MEDS: GUAIFENESIN/DM 600MG/30MG ER TAB 12HR PO SCH ×2 (08:42→21:52)
[2019-06-15] MEDS: TAMSULOSIN HCL 0.4MG SR CAPSULE PO SCH (08:42)
[2019-06-15] MEDS: TRAMADOL 50MG TABLET PO PRN (08:57)
[2019-06-15] MEDS ORDERED: LACTULOSE 20G/30ML UDC PO PRN (11:45)
[2019-06-15] MEDS: ENOXAPARIN 40MG/0.4ML SYR SUBCUT SCH (16:39)
[2019-06-15] MEDS ORDERED: BISACODYL 10MG SUPP PR NR (17:15)
[2019-06-15 20:00] VITALS: BP 142/60
[2019-06-15] MEDS: INSULIN GLARGINE UD 100 UNITS/ML SYR SUBCUT SCH (22:26)
[2019-06-16] MEDS: SUCRALFATE 1G TABLET PO SCH ×4 (06:36→21:07)
[2019-06-16] MEDS: BLOOD SUGAR DIAGNOSTIC STRIP TEST SCH ×4 (06:42→21:08)
[2019-06-16 07:49] VITALS: BP 145/76
[2019-06-16] MEDS: TRAMADOL 50MG TABLET PO PRN ×2 (08:34→13:32)
[2019-06-16] MEDS: ASCORBIC ACID 500 MG TABLET PO SCH ×2 (08:35→21:07)
[2019-06-16] MEDS: ZINC SULFATE 220 MG ( 50 ) CAPSULE PO SCH (08:35)
[2019-06-16] MEDS: AMLODIPINE 10MG TABLET PO SCH (08:35)
[2019-06-16] MEDS: TAMSULOSIN HCL 0.4MG SR CAPSULE PO SCH (08:35)
[2019-06-16] MEDS: LIDOCAINE 5% PATCH TOP SCH (08:35)
[2019-06-16] MEDS: GUAIFENESIN/DM 600MG/30MG ER TAB 12HR PO SCH ×2 (08:35→21:07)
[2019-06-16] MEDS: FAMOTIDINE 20MG TABLET PO SCH (08:35)
[2019-06-16] MEDS: INSULIN LISPRO 100 UNITS/ML SUBCUT SCH ×4 (08:41→21:21)
[2019-06-16] MEDS: ENOXAPARIN 40MG/0.4ML SYR SUBCUT SCH (16:14)
[2019-06-16 20:00] VITALS: BP 134/60
[2019-06-16] MEDS: INSULIN GLARGINE UD 100 UNITS/ML SYR SUBCUT SCH (22:08)
[2019-06-17] MEDS: SUCRALFATE 1G TABLET PO SCH ×2 (06:31→11:22)
[2019-06-17] MEDS: BLOOD SUGAR DIAGNOSTIC STRIP TEST SCH ×2 (06:31→11:23)
[2019-06-17] MEDS: INSULIN LISPRO 100 UNITS/ML SUBCUT SCH ×2 (06:35→13:00)
[2019-06-17 06:58] LABS: HEMATOCRIT. 29.5 % (42.0-52.0); HEMOGLOBIN. 9.7 g/dL (14.0-18.0); MEAN CORPUSCULAR VOLUME 88.5 fL (80.0-94.0); MEAN PLATELET VOLUME 8.1 fl (7.4-10.4); PLATELET 270 x1000/uL (130-400); RED BLOOD CELL COUNT 3.33 mill/uL (4.7-6.1); RED CELL DISTRIBUTION WIDTH 15.5 % (11.6-14.6)
[2019-06-17] MEDS ORDERED: TRAMADOL 50MG TABLET PO PRN (07:00)
[2019-06-17 07:41] VITALS: BP 146/77
[2019-06-17 08:00] LABS: PHOSPHORUS 3.1 mg/dL (2.5-4.9)
[2019-06-17] MEDS: LIDOCAINE 5% PATCH TOP SCH (08:42)
[2019-06-17] MEDS: FAMOTIDINE 20MG TABLET PO SCH (08:43)
[2019-06-17] MEDS: ASCORBIC ACID 500 MG TABLET PO SCH (08:43)
[2019-06-17] MEDS: GUAIFENESIN/DM 600MG/30MG ER TAB 12HR PO SCH (08:43)
[2019-06-17] MEDS: AMLODIPINE 10MG TABLET PO SCH (08:43)
[2019-06-17] MEDS: ZINC SULFATE 220 MG ( 50 ) CAPSULE PO SCH (08:44)
[2019-06-17] MEDS: TAMSULOSIN HCL 0.4MG SR CAPSULE PO SCH (08:44)
[2019-06-17 09:06] VITALS: BP 146/77
[2019-06-18 15:35] LABS: PLATELET ESTIMATE NORMAL
== END 2019-06-17 15:32 | DRG 291 ==
PROVIDERS: ADMIT Physical Medicine & Rehabilitation Spinal Cord Injury Medicine; ATTEND Internal Medicine
PROC: 0HBNXZZ Excision of Left Foot Skin, External Approach (ICD-10-PCS; principal; 2019-06-16)
PROC: 0HBMXZZ Excision of Right Foot Skin, External Approach (ICD-10-PCS; 2019-06-16)
DX: I13.0 Hypertensive heart and chronic kidney disease with heart failure and stage 1 through stage 4 chronic kidney disease, or unspecified chronic kidney disease (principal); I50.33 Acute on chronic diastolic (congestive) heart failure; J44.1 Chronic obstructive pulmonary disease with (acute) exacerbation; N17.9 Acute kidney failure, unspecified; E87.1 Hypo-osmolality and hyponatremia; N13.8 Other obstructive and reflux uropathy; M16.0 Bilateral primary osteoarthritis of hip; G89.29 Other chronic pain; M48.061 Spinal stenosis, lumbar region without neurogenic claudication; I25.10 Atherosclerotic heart disease of native coronary artery without angina pectoris; E11.22 Type 2 diabetes mellitus with diabetic chronic kidney disease; E11.51 Type 2 diabetes mellitus with diabetic peripheral angiopathy without gangrene; K21.9 Gastro-esophageal reflux disease without esophagitis; N40.0 Benign prostatic hyperplasia without lower urinary tract symptoms; L60.0 Ingrowing nail; D63.8 Anemia in other chronic diseases classified elsewhere; R53.1 Weakness; M62.50 Muscle wasting and atrophy, not elsewhere classified, unspecified site; B35.1 Tinea unguium; M47.816 Spondylosis without myelopathy or radiculopathy, lumbar region; E11.42 Type 2 diabetes mellitus with diabetic polyneuropathy; N18.3 Chronic kidney disease, stage 3 (moderate); N40.1 Benign prostatic hyperplasia with lower urinary tract symptoms; M76.9 Unspecified enthesopathy, lower limb, excluding foot; R97.20 Elevated prostate specific antigen [PSA]; L84 Corns and callosities; R53.81 Other malaise; E87.5 Hyperkalemia; R31.0 Gross hematuria; Z86.718 Personal history of other venous thrombosis and embolism; Z86.711 Personal history of pulmonary embolism; Z79.4 Long term (current) use of insulin; Z87.891 Personal history of nicotine dependence; Z83.3 Family history of diabetes mellitus; Z87.440 Personal history of urinary (tract) infections; Z95.820 Peripheral vascular angioplasty status with implants and grafts; Z79.899 Other long term (current) drug therapy; Z79.51 Long term (current) use of inhaled steroids
CPT/HCPCS: 36415; 71045; 73650; 76770; 80048; 81003; 82043; 82306; 82570; 82607; 82728; 82746; 82962; 83540; 83550; 83735; 84100; 84134; 84153; 84300; 84443; 92523; 93923; 93970; 94640; 97110; 97116; 97162; 97166; 97530; 97535; J1650; J1815; J7620; G0103